=== PATIENT | female | born 1940 | race Caucasian/White ===

== ENCOUNTER 2018-08-14 14:10 | Emergency (ER) | payer MEDICARE, SELFPAY ==
[2018-08-14 14:15] VITALS: PULSE 101; RESP 22; O2SAT 97
--- NOTE | 2018-08-14 14:41 | DI.RAD.S_ITS ---
PROCEDURE: XR CHEST 1V INDICATIONS: feels foggy, hx cva TECHNIQUE: One view of the chest was acquired. COMPARISON: [facility], , CHEST 2 VIEW, 11/06/2012, 16:41. FINDINGS: Surgical changes and devices: None. Lungs and pleura: Lungs are clear. No pleural effusions or pneumothorax. Mediastinum: Mediastinal contours appear normal. Heart size is normal. There may be mitral valve calcifications. There appears to be aortic atherosclerosis. Bones and chest wall: No suspicious bony lesions. Overlying soft tissues appear unremarkable. IMPRESSION: Stable chest. No acute cardiopulmonary process is evident. Dictated by: Justice Talley M.D. on 08/14/2018 at 14:50 Approved by: Justice Talley M.D. on 08/14/2018 at 14:50
--- NOTE | 2018-08-14 14:43 | DI.CT.S_ITS ---
PROCEDURE: CT HEAD/BRAIN WO CON INDICATIONS: adali jc, hx cva TECHNIQUE: Noncontrast 4.5 mm thick angled axial sections acquired from the foramen magnum to the vertex, with coronal and sagittal reformats. For radiation dose reduction, the following was used: automated exposure control, adjustment of mA and/or kV according to patient size. COMPARISON: MR, BRAIN W&W/O CONTRAST, 03/25/2008, 20:34. [facility], MR, STROKE PROTOCOL, 08/30/2012, 15:25. FINDINGS: Image quality: Excellent. CSF spaces: Basal cisterns are patent. No extra-axial fluid collections. The ventricles are symmetric in size and shape. Note is made of cavum septum pellucidum. 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 Brain: There is a moderate to large sized old infarct in the right frontal lobe. No intracranial bleeds or masses. There is mild cerebral volume loss for age, with resultant ventricular and sulcal prominence. There are mild periventricular and deep white matter chronic small vessel ischemic changes. There is intracranial internal carotid artery atherosclerosis. Skull and face: Calvarium and visualized facial bones appear intact, without suspicious lesions. Sinuses: Visualized sinuses and mastoids are clear. IMPRESSION: 1. No acute intracranial abnormalities. 2. 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 3. Mild cerebral volume loss and chronic microvascular ischemic changes. Dictated by: Jorge Perdue M.D. on 08/14/2018 at 15:14 Approved by: Jorge Perdue M.D. on 08/14/2018 at 15:22
[2018-08-14 15:13] LABS: Add Manual Diff / Slide Review NO; Basophils Absolute Auto 100 /uL (0-100); Basophils Percent Auto 1.7 % (0-2); Eosinophils Absolute Auto 100 /uL (0-450); Eosinophils Percent Auto 1.6 % (2-4); Hematocrit 42.2 % (36-46); Hemoglobin 14.1 g/dL (12.0-16.0); Lymphocytes Absolute Auto 1400 /uL (1100-4500); Lymphocytes Percent Auto 23.7 % (25-40); Mean Corpuscular HGB Conc 33.5 % (30-36); Mean Corpuscular Hemoglobin 32.4 PG (26-34); Mean Corpuscular Volume 96.9 fL (80-100); Monocytes Absolute Auto 400 /uL (0-900); Monocytes Percent Auto 6.6 % (3-14); Neutrophils Absolute Auto 3900 /uL (1500-7000); Neutrophils Percent Auto 66.4 % (50-75); Platelet Count 273 X10^3/uL (150-400); Red Blood Cell Count 4.36 X10^6/uL (4.0-5.2); Red Cell Distribution Width 12.9 % (11.6-14.8); White Blood Cell Count 5.8 X10^3/uL (4.5-11.0)
[2018-08-14 15:14] LABS: INR 2.8 (0.9-1.3); Prothrombin Time 33.5 SECONDS (10.1-12.7)
[2018-08-14 15:16] LABS: PTT Partial Thromboplastin Tim 40 SECONDS (26.4-36.2)
[2018-08-14 15:23] LABS: BUN Creatinine Ratio 23.3 (6-22); Blood Urea Nitrogen 14 mg/dL (7-17); Calcium 9.3 mg/dL (8.4-10.2); Carbon Dioxide 26 mmol/L (22-32); Chloride 103 mmol/L (98-107); Estimated Glomerular Filt Rate > 60.0 mL/min (>60); Glucose 169 mg/dL (80-110); HEMOLYSIS < 15 (0-50); Potassium 3.7 mmol/L (3.4-5.1); Sodium 139 mmol/L (137-145)
[2018-08-14 15:35] LABS: Troponin I < 0.012 ng/mL (0.01-0.034)
[2018-08-14 15:58] VITALS: BP 160/65; PULSE 85; RESP 16; O2SAT 97
[2018-08-14] MEDS: SODIUM CHLORIDE 0.9% 1,000 ML 150 ML IV (16:27)
--- NOTE | 2018-08-14 17:27 | ED.NEUROSD ---
HPI - Neuro Symptoms/Deficit General Chief Complaint: Neuro Symptoms/Deficit Stated Complaint: FEELS STRANGE HIGH BLOOD PRESSURE Time Seen by Provider: 08/14/18 14:41 Source: patient Mode of arrival: ambulatory Limitations: no limitations History of Present Illness HPI Narrative: This is a 78-year-old female comes to the emergency department with complaint of feeling foggy patient states that she has been very stressed. She states her and her are from her [place] for the last 6 months they have been in and out of hospitals with her and they have not been living in their own home. They do not have any children, close family or friends so they are both entirely dependent on each other. He has been sick and [facility] Patient today was getting out of the car she just did not feel right she felt sort of foggy. She states that her thinking felt sort of slow or not clear. She arrived at the care facility ran into 1 of her friends. They said she did look she had not eaten any breakfast this was about noon. They fed her a grilled cheese, donut and some water she felt a little bit better and then they walked her over here. The patient had not had any headache, no chest pain, no shortness of breath, no difficulty with speech, weakness or vision. She had no issues with ambulation. She has not had any numbness or tingling. No nausea no vomiting no other issues with bowel movements. No new frequency urgency or dysuria. No new swelling in her lower extremities. she does have a remote history of stroke, she has history of atrial fibrillation which she states she is often in. She states that she has normal cholesterol. She has been diagnosed with CHF in the past. She does take warfarin daily. She has a history of breast cancer with multiple surgeries and multiple types of breast cancer. She does not smoke tobacco or use any alcohol. Related Data Home Medications Medication Instructions Recorded Confirmed CHOLECALCIFEROL (VITAMIN D3) 50,000 iu PO Q WEEK #0 08/06/10 (Vitamin D3) FOLIC ACID (Folate) 0.4 mg PO QDAY #0 08/06/10 VITAMIN C - 500 mg PO Q DAY #0 08/06/10 (VITAMIN C) [CO-Q10] 100 mg PO Q DAY #0 08/06/10 [GARLIC] 300 mg PO BID #0 08/06/10 CYANOCOBALAMIN (#VITAMIN B12) 500 mcg PO QDAY #0 07/23/11 [MACULAR PROTECT COMP] BID #0 07/23/11 aspirin 325 mg PO QDAY #0 07/23/11 metoprolol tartrate 25 mg PO PRN #0 07/23/11 Magnesium Gluconate (MAGTRATE) 400 mg PO QDAY #0 04/30/12 clindamycin HCl [Cleocin HCl] 300 mg PO #0 04/30/12 Allergies Allergy/AdvReac Type Severity Reaction Status Date / Time MILK Allergy Mild RHINITIS; Uncoded 08/23/17 11:48 EAR INFECTION, Cyclophosphamide Allergy Unknown Uncoded 08/23/17 11:48 DILTIAZEM Allergy Unknown SWELLING, Uncoded 08/23/17 11:48 CHILLS, ITCHING, STATES IV OK ERYTHROMYCIN Allergy Unknown RASH Uncoded 08/23/17 11:48 From ADRIAMYCIN Allergy Unknown NEUTROPENIC Uncoded 08/23/17 11:48 FEVER From FLUORIDE Allergy Unknown RASH Uncoded 08/23/17 11:48 From HERCEPTIN Allergy Unknown FLU LIKE Uncoded 08/23/17 11:48 SYMPTOMS From RESTORIL Allergy Unknown EXTREME Uncoded 08/23/17 11:48 DIZZINESS Paclitaxel Allergy Unknown Uncoded 08/23/17 11:48 PENICILLIN Allergy Unknown RASH Uncoded 08/23/17 11:48 PREDNISONE Allergy Unknown HYPERTENSION, Uncoded 08/23/17 11:48 SWELLING, WEIGHT GAIN SULFA Allergy Unknown Uncoded 08/23/17 11:48 TAMOXIFEN Allergy Unknown BLEEDING, Uncoded 08/23/17 11:48 TIA? TAPE Allergy Unknown RASH Uncoded 08/23/17 11:48 BLISTERS TETRACYCLINE Allergy Unknown RASH Uncoded 08/23/17 11:48 VANCOMYCIN Allergy Unknown RED SKIN Uncoded 08/23/17 11:48 Review of Systems Review of Systems ROS Unobtainable: All systems reviewed & are unremarkable except as noted in HPI and below Constitutional Denies chills, Denies fever(s), Denies frequent falls, Denies headache(s), Denies lethargy and Denies weakness Eyes Denies loss of vision ENT Ears, Nose, Mouth, and Throat: Denies vertigo, Denies dizziness and Denies headache(s) Cardiovascular Denies chest pain, Denies diaphoresis, Denies syncope, Denies rapid heart rate, Denies pedal edema, Denies irregular heart rhythm, Denies lightheadedness, Denies palpitations, Denies dyspnea, Denies dyspnea on exertion and Denies orthopnea Respiratory Denies chest congestion, Denies cough, Denies excessive phlegm production, Denies pain with cough, Denies dyspnea, Denies dyspnea on exertion and Denies wheezing Gastrointestinal Gastrointestinal: Denies abdominal pain, Denies change in bowel habits, Denies diarrhea, Denies nausea and Denies vomiting Genitourinary Denies hematuria, Denies urinary frequency, Denies dysuria, Denies flank pain and Denies urinary urgency Musculoskeletal Denies abnormal gait, Denies numbness and Denies tingling Integumentary/Breasts Denies rash Neurologic Reports as per HPI, Denies abnormal speech, Denies abnormal gait, Denies confusion, Denies vertigo, Denies dizziness, Denies syncope, Denies frequent falls, Denies headache(s), Denies focal weakness, Denies loss of vision, Denies memory loss, Denies numbness, Denies sensory deficit, Denies tingling, Denies paresthesias, Denies weakness and Reports other ([place] foggy) Psychiatric Denies confusion and Denies memory loss Endocrine Denies palpitations Allergic/Immunologic Denies wheezing PFSH Medical History (Updated 08/14/18 @ 17:59 by Valeria Hernandez DO) CHF (congestive heart failure) (Chronic) CVA (cerebral vascular accident) (Chronic) Chronic a-fib (Chronic) Breast cancer (Resolved) Social History Smoking Status: Former smoker Social History (Updated 08/14/18 @ 18:00 by Valeria Hernandez DO) marital status: details: From [place], living [facility] Smoking Status: Former smoker substance use type: does not use Exam Narrative Exam Narrative: GEN: well nourished, well appearing female, alert and oriented x 3, patient appears to be in no acute distress. HEENT: Atraumatic, pupils are equal round reactive to light, extraocular movements are intact, nares are clear, TMs are clear with no fluid, there is no conjunctival pallor. Throat is clear without any exudates, erythema, tonsillar enlargement or uvular deviation, no facial. HEART: Regular rate and rhythm without murmur, clicks, rubs. No carotid bruits, pulses are equal in upper and lower extremities LUNGS:Lungs clear to auscultation, no wheezes, rales, crackles, chest moves symmetrically ABD:bowel sounds normal, soft, non-tender, no guarding, rebound, rigidity, no masses noted, no hepatosplenomegaly :No CVA tenderness MSCL: Non-tender, no muscle atrophy, muscles strength 5/5 upper and lower extremities, full range of motion, normal gait NEURO:CN 2-12 intact, sensation normal, reflexes 2/4 upper and lower extremities. finger nose finger test normal, heel torres test normal Initial Vital Signs Initial Vital Signs: Vital Signs Pulse Rate 101 H 08/14/18 14:15 Respiratory Rate 22 08/14/18 14:15 Pulse Oximetry 97 08/14/18 14:15 Scores NIH Stroke Scale Level of Conciousness: Alert, keenly responsive Ask month/age: Answers both questions correctly. Open/close eyes, close hand: Performs both tasks correctly Best gaze horizontal: Normal Visual juan: No visual loss Facial palsy: Normal symetrical movement Left arm drift: No drift for full 10 sec Right arm drift: No drift for full 10 sec Left leg drift: No drift for full 10 sec Right leg drift: No drift for full 10 sec Limb ataxia: Absent Sensory on face/arms/legs: Normal, no sensory loss Best language: No aphasia, normal Dysarthria: Normal Extinction or inattention: No abnormality Total NIH Stroke scale score: 0 Course Orders Ordered: ED Orders 08/14/18 14:41 XR chest 1V Stat EKG-12 Lead Stat 08/14/18 14:43 CT head/brain wo con Stat 08/14/18 14:55 Basic Metabolic Panel Stat Complete Blood Count AUTO DIFF Stat Partial Thromboplastin Time Stat Prothrombin Time INR Stat Troponin I Stat Discontinued Medications Sodium Chloride (Normal Saline 0.9%) 1,000 mls @ 150 mls/hr IV CONT VENICE Last Infusion: 08/14/18 18:05 Dose: 0 mls/hr Admin: 08/14/18 16:27 Dose: 150 mls/hr Vital Signs - 8 hr 08/14/18 14:15 08/14/18 15:58 08/14/18 17:28 Temperature Pulse Rate 101 H 85 98 H Respiratory Rate 22 16 18 Blood Pressure [Right Arm] 160/65 H 129/90 Pulse Oximetry 97 97 97 08/14/18 18:05 Temperature 98.1 F Pulse Rate Respiratory Rate Blood Pressure [Right Arm] Pulse Oximetry MDM - Neuro Symptoms/Deficit Lab Data Attestation: I reviewed the patient's lab results. Result diagrams: 08/14/18 14:55 08/14/18 14:55 Lab Results 08/14/18 08/14/18 08/14/18 Range/Units 14:55 14:55 14:55 WBC 5.8 (4.5-11.0) X10^3/uL RBC 4.36 (4.0-5.2) X10^6/uL Hgb 14.1 (12.0-16.0) g/dL Hct 42.2 (36-46) % MCV 96.9 (80-100) fL MCH 32.4 (26-34) PG MCHC 33.5 (30-36) % RDW 12.9 (11.6-14.8) % Plt Count 273 (150-400) X10^3/uL Neut % (Auto) 66.4 (50-75) % Lymph % (Auto) 23.7 L (25-40) % [place] % (Auto) 6.6 (3-14) % Eos % (Auto) 1.6 L (2-4) % Baso % (Auto) 1.7 (0-2) % Neut # (Auto) 3900 (6474-6728) /uL Lymph # (Auto) 1400 (5808-3745) /uL [place] # (Auto) 400 (0-900) /uL Eos # (Auto) 100 (0-450) /uL Baso # (Auto) 100 (0-100) /uL PT 33.5 H (10.1-12.7) SECONDS INR 2.8 H (0.9-1.3) APTT 40 H (26.4-36.2) SECONDS Sodium 139 (137-145) mmol/L Potassium 3.7 (3.4-5.1) mmol/L Chloride 103 (98-107) mmol/L Carbon Dioxide 26 (22-32) mmol/L BUN 14 (7-17) mg/dL Creatinine 0.60 (0.52-1.04) mg/dL Estimated GFR > 60.0 (>60) mL/min BUN/Creatinine Ratio 23.3 H (6-22) Glucose 169 H (80-110) mg/dL Calcium 9.3 (8.4-10.2) mg/dL Troponin I < 0.012 (0.01-0.034) ng/mL Point of Care Testing Glucose POC 164 Urine Dip Bedside Urine Glucose Negative Bedside Urine Bilirubin - Negative Bedside Urine Ketone - Negative Urine Specific [place] 1.015 Bedside Urine Occult Blood - Negative Bedside Urine pH 6.5 Bedside Urine Protein - Negative Bedside Urine Urobilinogen - Negative Bedside Urine Nitrite - Negative Bedside Urine Leukocytes - Negative Esterase Imaging Data CT scan - head: Radiologist's impression: Haylie Watson Y 78 F [address] [address] [address] Scan Report Signed Patient: Haylie Watson YMR#: [id number] : 1940Acct:[id number] Age/Sex: 78 / FDate of Service: 08/14/18 Loc: ED Accession Number: [id number] Procedure: CT head/brain wo con Ordering Provider: Valeria Hernandez D.O. PROCEDURE: CT HEAD/BRAIN WO CON INDICATIONS: feels foggy, hx cva TECHNIQUE: Noncontrast 4.5 mm thick angled axial sections acquired from the foramen magnum to the vertex, with coronal and sagittal reformats. For radiation dose reduction, the following was used: automated exposure control, adjustment of mA and/or kV according to patient size. COMPARISON: MR, BRAIN W&W/O CONTRAST, 03/25/2008, 20:34. [facility], MR, STROKE PROTOCOL, 08/30/2012, 15:25. FINDINGS: Image quality: Excellent. CSF spaces: Basal cisterns are patent. No extra-axial fluid collections. The ventricles are symmetric in size and shape. Note is made of cavum septum pellucidum. 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 Brain: There is a moderate to large sized old infarct in the right frontal lobe. No intracranial bleeds or masses. There is mild cerebral volume loss for age, with resultant ventricular and sulcal prominence. There are mild periventricular and deep white matter chronic small vessel ischemic changes. There is intracranial internal carotid artery atherosclerosis. Skull and face: Calvarium and visualized facial bones appear intact, without suspicious lesions. Sinuses: Visualized sinuses and mastoids are clear. IMPRESSION: 1. No acute intracranial abnormalities. 2. 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 3. Mild cerebral volume loss and chronic microvascular ischemic changes. Dictated by: Jorge Perdue M.D. on 08/14/2018 at 15:14 Approved by: Jorge Perdue M.D. on 08/14/2018 at 15:22 Chest x-ray: Radiologist's impression: [address] [address] XRay Report Signed Patient: Haylie Watson YMR#: [id number] : 1940Acct:[id number] Age/Sex: 78 / FDate of Service: 08/14/18 Loc: ED Accession Number: [id number] Procedure: XR chest 1V Ordering Provider: Valeria Hernandez D.O. PROCEDURE: XR CHEST 1V INDICATIONS: feels foggy, hx cva TECHNIQUE: One view of the chest was acquired. COMPARISON: [facility], , CHEST 2 VIEW, 11/06/2012, 16:41. FINDINGS: Surgical changes and devices: None. Lungs and pleura: Lungs are clear. No pleural effusions or pneumothorax. Mediastinum: Mediastinal contours appear normal. Heart size is normal. There may be mitral valve calcifications. There appears to be aortic atherosclerosis. Bones and chest wall: No suspicious bony lesions. Overlying soft tissues appear unremarkable. IMPRESSION: Stable chest. No acute cardiopulmonary process is evident. Dictated by: Justice Talley M.D. on 08/14/2018 at 14:50 Approved by: Justice Talley M.D. on 08/14/2018 at 14:50 ECG Data Attestation: I personally reviewed and interpreted this ECG as follows: Interpretation: AFib rate of 93 QRS of [address] change. MDM Narrative Medical decision making narrative: Patient describes feeling sort of fungi or maybe a beer thinking but no actual neurologic changes, no other concerning changes. Her urinalysis is. Patient lab work shows an elevated INR which is consistent with being on Coumadin and is therapeutic range. Head CT shows an old CVA which she states she is aware of. Patient's chest x-ray does not show any acute changes. Lab work otherwise does not show any major changes. Discussed patient she can return any time for any new or worsening symptoms. She has been quite stressed this is likely contributing she had not had anything to eat or drink earlier. She felt better after she ate. Patient feels foggy but not really altered in her mental status otherwise. Discussed with patient's signs symptoms to watch for. Reasons to return emergently. Patient feels comfortable with this plan. She is having some stress personally and financially based on her 's a recurrent hospitalizations and time in the nursing facility. 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 Discharge Plan Departure Patient Disposition: Home Clinical Impression: Person with feared complaint in whom no diagnosis is made Discharge Date/Time: 08/14/18 18:05 Interventions: ED Discharge Assessment Last Done: 08/14/18 18:05 Instructions: DI for Altered Mental Status Activity Restrictions/Additional Instructions: Follow-up with her primary care physician in the next week for recheck. Continue her home medications as prescribed. You may continue your regular activities. Return to the emergency department for altered mental status, new confusion, new weakness, numbness, difficulty with speech, facial droop, inability to walk or move her upper or lower extremities, sudden severe headaches, no chest pain, shortness of breath or persistent vomiting or abdominal pain. Prescriptions: No Action CHOLECALCIFEROL (VITAMIN D3) (Vitamin D3) 50,000 iu PO Q WEEK Qty: 0 RF: 0 FOLIC ACID (Folate) 0.4 mg PO QDAY Qty: 0 RF: 0 VITAMIN C - (VITAMIN C) 500 mg PO Q DAY Qty: 0 RF: 0 [CO-Q10] 100 mg PO Q DAY Qty: 0 RF: 0 [GARLIC] 300 mg PO BID Qty: 0 RF: 0 aspirin 325 MG tablet,delayed release (DR/EC) 325 mg PO QDAY Qty: 0 RF: 0 [MACULAR PROTECT COMP] BID Qty: 0 RF: 0 CYANOCOBALAMIN (#VITAMIN B12) 500 mcg PO QDAY Qty: 0 RF: 0 metoprolol tartrate 25 MG tablet 25 mg PO PRN Qty: 0 RF: 0 Magnesium Gluconate (MAGTRATE) 400 mg PO QDAY Qty: 0 RF: 0 clindamycin HCl [Cleocin HCl] 300 MG capsule 300 mg PO Qty: 0 RF: 0 Referrals: David Farrell MD [Primary Care Provider] -
[2018-08-14 17:28] VITALS: BP 129/90; PULSE 98; RESP 18; O2SAT 97
--- NOTE | 2018-08-14 17:54 | ED_ITS ---
HPI - Neuro Symptoms/Deficit General Chief Complaint: Neuro Symptoms/Deficit Stated Complaint: FEELS STRANGE HIGH BLOOD PRESSURE Time Seen by Provider: 08/14/18 14:41 Source: patient Mode of arrival: ambulatory Limitations: no limitations History of Present Illness HPI Narrative: This is a 78-year-old female comes to the emergency department with complaint of feeling foggy patient states that she has been very stressed. She states her and her are from her [place] for the last 6 months they have been in and out of hospitals with her and they have not been living in their own home. They do not have any children, close family or friends so they are both entirely dependent on each other. He has been sick and is currently staying at [facility]. Patient today was getting out of the car she just did not feel right she felt sort of foggy. She states that her thinking felt sort of slow or not clear. She arrived at the care facility ran into 1 of her friends. They said she did look she had not eaten any breakfast this was about noon. They fed her a grilled cheese, donut and some water she felt a little bit better and then they walked her over here. The patient had not had any headache, no chest pain, no shortness of breath, no difficulty with speech, weakness or vision. She had no issues with ambulation. She has not had any numbness or tingling. No nausea no vomiting no other issues with bowel movements. No new frequency urgency or dysuria. No new swelling in her lower extremities. she does have a remote history of stroke, she has histor y of atrial fibrillation which she states she is often in. She states that she has normal cholesterol. She has been diagnosed with CHF in the past. She does take warfarin daily. She has a history of breast cancer with multiple surgeries and multiple types of breast cancer. She does not smoke tobacco or use any alcohol. Related Data Home Medications Medication Instructions Recorded Confirmed CHOLECALCIFEROL (VITAMIN D3) 50,000 iu PO Q WEEK #0 08/06/10 (Vitamin D3) FOLIC ACID (Folate) 0.4 mg PO QDAY #0 08/06/10 VITAMIN C - 500 mg PO Q DAY #0 08/06/10 (VITAMIN C) [CO-Q10] 100 mg PO Q DAY #0 08/06/10 [GARLIC] 300 mg PO BID #0 08/06/10 CYANOCOBALAMIN (#VITAMIN B12) 500 mcg PO QDAY #0 07/23/11 [MACULAR PROTECT COMP] BID #0 07/23/11 aspirin 325 mg PO QDAY #0 07/23/11 metoprolol tartrate 25 mg PO PRN #0 07/23/11 Magnesium Gluconate (MAGTRATE) 400 mg PO QDAY #0 04/30/12 clindamycin HCl [Cleocin HCl] 300 mg PO #0 04/30/12 Allergies Allergy/AdvReac Type Severity Reaction Status Date / Time MILK Allergy Mild RHINITIS; Uncoded 08/23/17 11:48 EAR INFECTION, Cyclophosphamide Allergy Unknown Uncoded 08/23/17 11:48 DILTIAZEM Allergy Unknown SWELLING, Uncoded 08/23/17 11:48 CHILLS, ITCHING, STATES IV OK ERYTHROMYCIN Allergy Unknown RASH Uncoded 08/23/17 11:48 From ADRIAMYCIN Allergy Unknown NEUTROPENIC Uncoded 08/23/17 11:48 FEVER From FLUORIDE Allergy Unknown RASH Uncoded 08/23/17 11:48 From HERCEPTIN Allergy Unknown FLU LIKE Uncoded 08/23/17 11:48 SYMPTOMS From RESTORIL Allergy Unknown EXTREME Uncoded 08/23/17 11:48 DIZZINESS Paclitaxel Allergy Unknown Uncoded 08/23/17 11:48 PENICILLIN Allergy Unknown RASH Uncoded 08/23/17 11:48 PREDNISONE Allergy Unknown HYPERTENSION, Uncoded 08/23/17 11:48 SWELLING, WEIGHT GAIN SULFA Allergy Unknown Uncoded 08/23/17 11:48 TAMOXIFEN Allergy Unknown BLEEDING, Uncoded 08/23/17 11:48 TIA? TAPE Allergy Unknown RASH Uncoded 08/23/17 11:48 BLISTERS TETRACYCLINE Allergy Unknown RASH Uncoded 08/23/17 11:48 VANCOMYCIN Allergy Unknown RED SKIN Uncoded 08/23/17 11:48 Review of Systems Review of Systems ROS Unobtainable: All systems reviewed & are unremarkable except as noted in HPI and below Constitutional Denies chills, Denies fever(s), Denies frequent falls, Denies headache(s), Denies lethargy and Denies weakness Eyes Denies loss of vision ENT Ears, Nose, Mouth, and Throat: Denies vertigo, Denies dizziness and Denies headache(s) Cardiovascular Denies chest pain, Denies diaphoresis, Denies syncope, Denies rapid heart rate, Denies pedal edema, Denies irregular heart rhythm, Denies lightheadedness, Denies palpitations, Denies dyspnea, Denies dyspnea on exertion and Denies orthopnea Respiratory Denies chest congestion, Denies cough, Denies excessive phlegm production, Denies pain with cough, Denies dyspnea, Denies dyspnea on exertion and Denies wheezing Gastrointestinal Gastrointestinal: Denies abdominal pain, Denies change in bowel habits, Denies diarrhea, Denies nausea and Denies vomiting Genitourinary Denies hematuria, Denies urinary frequency, Denies dysuria, Denies flank pain and Denies urinary urgency Musculoskeletal Denies abnormal gait, Denies numbness and Denies tingling Integumentary/Breasts Denies rash Neurologic Reports as per HPI, Denies abnormal speech, Denies abnormal gait, Denies confusion, Denies vertigo, Denies dizziness, Denies syncope, Denies frequent falls, Denies headache(s), Denies focal weakness, Denies loss of vision, Denies memory loss, Denies numbness, Denies sensory deficit, Denies tingling, Denies paresthesias, Denies weakness and Reports other ([place] foggy) Psychiatric Denies confusion and Denies memory loss Endocrine Denies palpitations Allergic/Immunologic Denies wheezing PFS Medical History (Updated 08/14/18 @ 17:59 by Valeria Hernandez DO) CHF (congestive heart failure) (Chronic) CVA (cerebral vascular accident) (Chronic) Chronic a-fib (Chronic) Breast cancer (Resolved) Social History Smoking Status: Former smoker Social History (Updated 08/14/18 @ 18:00 by Valeria Hernandez DO) marital status: details: From [place], living in [facility] Smoking Status: Former smoker substance use type: does not use Exam Narrative Exam Narrative: GEN: well nourished, well appearing female, alert and oriented x 3, patient appears to be in no acute distress. HEENT: Atraumatic, pupils are equal round reactive to light, extraocular movements are intact, nares are clear, TMs are clear with no fluid, there is no conjunctival pallor. Throat is clear without any exudates, erythema, tonsillar enlargement or uvular deviation, no facial. HEART: Regular rate and rhythm without murmur, clicks, rubs. No carotid bruits, pulses are equal in upper and lower extremities LUNGS:Lungs clear to auscultation, no wheezes, rales, crackles, chest moves symmetrically ABD:bowel sounds normal, soft, non-tender, no guarding, rebound, rigidity, no masses noted, no hepatosplenomegaly :No CVA tenderness MSCL: Non-tender, no muscle atrophy, muscles strength 5/5 upper and lower extremities, full range of motion, normal gait NEURO:CN 2-12 intact, sensation normal, reflexes 2/4 upper and lower extremities. finger nose finger test normal, heel torres test normal Initial Vital Signs Initial Vital Signs: Vital Signs Pulse Rate 101 H 08/14/18 14:15 Respiratory Rate 22 08/14/18 14:15 Pulse Oximetry 97 08/14/18 14:15 Scores NIH Stroke Scale Level of Conciousness: Alert, keenly responsive Ask month/age: Answers both questions correctly. Open/close eyes, close hand: Performs both tasks correctly Best gaze horizontal: Normal Visual juan: No visual loss Facial palsy: Normal symetrical movement Left arm drift: No drift for full 10 sec Right arm drift: No drift for full 10 sec Left leg drift: No drift for full 10 sec Right leg drift: No drift for full 10 sec Limb ataxia: Absent Sensory on face/arms/legs: Normal, no sensory loss Best language: No aphasia, normal Dysarthria: Normal Extinction or inattention: No abnormality Total NIH Stroke scale score: 0 Course Orders Ordered: ED Orders 08/14/18 14:41 XR chest 1V Stat EKG-12 Lead Stat 08/14/18 14:43 CT head/brain wo con Stat 08/14/18 14:55 Basic Metabolic Panel Stat Complete Blood Count AUTO DIFF Stat Partial Thromboplastin Time Stat Prothrombin Time INR Stat Troponin I Stat Discontinued Medications Sodium Chloride (Normal Saline 0.9%) 1,000 mls @ 150 mls/hr IV CONT VENICE Last Infusion: 08/14/18 18:05 Dose: 0 mls/hr Admin: 08/14/18 16:27 Dose: 150 mls/hr Vital Signs - 8 hr 08/14/18 14:15 08/14/18 15:58 08/14/18 17:28 Temperature Pulse Rate 101 H 85 98 H Respiratory Rate 22 16 18 Blood Pressure [Right Arm] 160/65 H 129/90 Pulse Oximetry 97 97 97 08/14/18 18:05 Temperature 98.1 F Pulse Rate Respiratory Rate Blood Pressure [Right Arm] Pulse Oximetry MDM - Neuro Symptoms/Deficit Lab Data Attestation: I reviewed the patient's lab results. Result diagrams: 08/14/18 14:55 08/14/18 14:55 Lab Results 08/14/18 08/14/18 08/14/18 Range/Units 14:55 14:55 14:55 WBC 5.8 (4.5-11.0) X10^3/uL RBC 4.36 (4.0-5.2) X10^6/uL Hgb 14.1 (12.0-16.0) g/dL Hct 42.2 (36-46) % MCV 96.9 (80-100) fL MCH 32.4 (26-34) PG MCHC 33.5 (30-36) % RDW 12.9 (11.6-14.8) % Plt Count 273 (150-400) X10^3/uL Neut % (Auto) 66.4 (50-75) % Lymph % (Auto) 23.7 L (25-40) % [place] % (Auto) 6.6 (3-14) % Eos % (Auto) 1.6 L (2-4) % Baso % (Auto) 1.7 (0-2) % Neut # (Auto) 3900 (1054-5216) /uL Lymph # (Auto) 1400 (0489-8350) /uL Fergus # (Auto) 400 (0-900) /uL Eos # (Auto) 100 (0-450) /uL Baso # (Auto) 100 (0-100) /uL PT 33.5 H (10.1-12.7) SECONDS INR 2.8 H (0.9-1.3) APTT 40 H (26.4-36.2) SECONDS Sodium 139 (137-145) mmol/L Potassium 3.7 (3.4-5.1) mmol/L Chloride 103 (98-107) mmol/L Carbon Dioxide 26 (22-32) mmol/L BUN 14 (7-17) mg/dL Creatinine 0.60 (0.52-1.04) mg/dL Estimated GFR > 60.0 (>60) mL/min BUN/Creatinine Ratio 23.3 H (6-22) Glucose 169 H (80-110) mg/dL Calcium 9.3 (8.4-10.2) mg/dL Troponin I < 0.012 (0.01-0.034) ng/mL Point of Care Testing Glucose POC 164 Urine Dip Bedside Urine Glucose Negative Bedside Urine Bilirubin - Negative Bedside Urine Ketone - Negative Urine Specific [place] 1.015 Bedside Urine Occult Blood - Negative Bedside Urine pH 6.5 Bedside Urine Protein - Negative Bedside Urine Urobilinogen - Negative Bedside Urine Nitrite - Negative Bedside Urine Leukocytes - Negative Esterase Imaging Data CT scan - head: Radiologist's impression: Haylie Watson Y 78 F [address] [address] [address] Scan Report Signed Patient: Haylie Watson YMR#: [id number] : 1940Acct:[id number] Age/Sex: 78 / FDate of Service: 08/14/18 Loc: ED Accession Number: [id number] Procedure: CT head/brain wo con Ordering Provider: Valeria Hernandez D.O. PROCEDURE: CT HEAD/BRAIN WO CON INDICATIONS: feels foggy, hx cva TECHNIQUE: Noncontrast 4.5 mm thick angled axial sections acquired from the foramen magnum to the vertex, with coronal and sagittal reformats. For radiation dose reduction, the following was used: automated exposure control, adjustment of mA and/or kV according to patient size. COMPARISON: MR, BRAIN W&W/O CONTRAST, 03/25/2008, 20:34. [facility], MR, STROKE PROTOCOL, 08/30/2012, 15:25. FINDINGS: Image quality: Excellent. CSF spaces: Basal cisterns are patent. No extra-axial fluid collections. The ventricles are symmetric in size and shape. Note is made of cavum septum pellucidum. 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 Brain: There is a moderate to large sized old infarct in the right frontal lobe. No intracranial bleeds or masses. There is mild cerebral volume loss for age, with resultant ventricular and sulcal prominence. There are mild periventricular and deep white matter chronic small vessel ischemic changes. There is intracranial internal carotid artery atherosclerosis. Skull and face: Calvarium and visualized facial bones appear intact, without suspicious lesions. Sinuses: Visualized sinuses and mastoids are clear. IMPRESSION: 1. No acute intracranial abnormalities. 2. 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 3. Mild cerebral volume loss and chronic microvascular ischemic changes. Dictated by: Jorge Perdue M.D. on 08/14/2018 at 15:14 Approved by: Jorge Perdue M.D. on 08/14/2018 at 15:22 Chest x-ray: Radiologist's impression: [address] [address] XRay Report Signed Patient: Haylie Watson YMR#: [id number] : 1940Acct:[id number] Age/Sex: 78 / FDate of Service: 08/14/18 Loc: ED Accession Number: [id number] Procedure: XR chest 1V Ordering Provider: Valeria Hernandez D.O. PROCEDURE: XR CHEST 1V INDICATIONS: feels foggy, hx cva TECHNIQUE: One view of the chest was acquired. COMPARISON: [facility], , CHEST 2 VIEW, 11/06/2012, 16:41. FINDINGS: Surgical changes and devices: None. Lungs and pleura: Lungs are clear. No pleural effusions or pneumothorax. Mediastinum: Mediastinal contours appear normal. Heart size is normal. There may be mitral valve calcifications. There appears to be aortic atherosclerosis. Bones and chest wall: No suspicious bony lesions. Overlying soft tissues appear unremarkable. IMPRESSION: Stable chest. No acute cardiopulmonary process is evident. Dictated by: Justice Talley M.D. on 08/14/2018 at 14:50 Approved by: Justice Talley M.D. on 08/14/2018 at 14:50 ECG Data Attestation: I personally reviewed and interpreted this ECG as follows: Interpretation: AFib rate of 93 QRS of [address] change. MDM Narrative Medical decision making narrative: Patient describes feeling sort of fungi or maybe a beer thinking but no actual neurologic changes, no other concerning changes. Her urinalysis is. Patient lab work shows an elevated INR which is consistent with being on Coumadin and is therapeutic range. Head CT shows an old CVA which she states she is aware of. Patient's chest x-ray does not show any acute changes. Lab work otherwise does not show any major changes. Discu ssed patient she can return any time for any new or worsening symptoms. She has been quite stressed this is likely contributing she had not had anything to eat or drink earlier. She felt better after she ate. Patient feels foggy but not really altered in her mental status otherwise. Discussed with patient's signs symptoms to watch for. Reasons to return emergently. Patient feels comfortable with this plan. She is having some stress personally and financially based on her 's a recurrent hospitalizations and time in the nursing facility. She did not wish to talk to social services analyst she states she has many social workers that she is interacting with on a regular basis. Discharge Plan Departure Patient Disposition: Home Clinical Impression: Person with feared complaint in whom no diagnosis is made Discharge Date/Time: 08/14/18 18:05 Interventions: ED Discharge Assessment Last Done: 08/14/18 18:05 Instructions: DI for Altered Mental Status Activity Restrictions/Additional Instructions: Follow-up with her primary care physician in the next week for recheck. Continue her home medications as prescribed. You may continue your regular activities. Return to the emergency department for altered mental status, new confusion, new weakness, numbness, difficulty with speech, facial droop, inability to walk or move her upper or lower extremities, sudden severe headaches, no chest pain, shortness of breath or persistent vomiting or abdominal pain. Prescriptions: No Action CHOLECALCIFEROL (VITAMIN D3) (Vitamin D3) 50,000 iu PO Q WEEK Qty: 0 RF: 0 FOLIC ACID (Folate) 0.4 mg PO QDAY Qty: 0 RF: 0 VITAMIN C - (VITAMIN C) 500 mg PO Q DAY Qty: 0 RF: 0 [CO-Q10] 100 mg PO Q DAY Qty: 0 RF: 0 [GARLIC] 300 mg PO BID Qty: 0 RF: 0 aspirin 325 MG tablet,delayed release (DR/EC) 325 mg PO QDAY Qty: 0 RF: 0 [MACULAR PROTECT COMP] BID Qty: 0 RF: 0 CYANOCOBALAMIN (#VITAMIN B12) 500 mcg PO QDAY Qty: 0 RF: 0 metoprolol tartrate 25 MG tablet 25 mg PO PRN Qty: 0 RF: 0 Magnesium Gluconate (MAGTRATE) 400 mg PO QDAY Qty: 0 RF: 0 clindamycin HCl [Cleocin HCl] 300 MG capsule 300 mg PO Qty: 0 RF: 0 Referrals: David Farrell MD [Primary Care Provider] -
[2018-08-14 18:05] VITALS: TEMP 36.7
== END 2018-08-14 18:05 | disposition home or self-care (01) ==
PROVIDERS: Emergency Provider Emergency Medicine; Family Provider Internal Medicine; PCP Internal Medicine
DX: R41.0 Disorientation, unspecified (principal); R03.0 Elevated blood-pressure reading, without diagnosis of hypertension; Z71.1 Person with feared health complaint in whom no diagnosis is made; Z86.73 Personal history of transient ischemic attack (TIA), and cerebral infarction without residual deficits
CPT/HCPCS: 70450; 71045; 80048; 81003; 82962; 84484; 85025; 85610; 85730; 93005; 96360; 96361; 99284; 99285; 99291

== ENCOUNTER → 2020-02-27 19:29 | Outpatient (ROUT) | payer MEDICARE, SELFPAY ==
[2020-02-27 19:50] LABS: Add Manual Diff / Slide Review NO; Basophils Absolute Auto 100 /uL (0-100); Eosinophils Absolute Auto 200 /uL (0-450); Eosinophils Percent Auto 2.2 % (2-4); Hemoglobin 14.4 g/dL (12.0-16.0); Lymphocytes Absolute Auto 2500 /uL (1100-4500); Lymphocytes Percent Auto 31.4 % (25-40); Mean Corpuscular HGB Conc 34.3 % (30-36); Mean Corpuscular Hemoglobin 32.5 PG (26-34); Monocytes Absolute Auto 900 /uL (0-900); Monocytes Percent Auto 10.9 % (3-14); Neutrophils Absolute Auto 4300 /uL (1500-7000); Neutrophils Percent Auto 54.5 % (50-75); Platelet Count 271 X10^3/uL (150-400); Red Blood Cell Count 4.42 X10^6/uL (4.0-5.2); Red Cell Distribution Width 13.5 % (11.6-14.8); White Blood Cell Count 7.8 X10^3/uL (4.5-11.0)
[2020-02-27 20:03] LABS: Alanine Aminotransferase 18 IU/L (<35); Albumin 4.1 g/dL (3.5-5.0); Albumin Globulin Ratio 1.2 (1.0-2.8); Alkaline Phosphatase 93 U/L (38-126); Aspartate Aminotransferase 30 IU/L (14-36); BUN Creatinine Ratio 32.2 (6-22); Bilirubin Total 0.4 mg/dL (0.2-1.3); Blood Urea Nitrogen 19 mg/dL (7-17); Calcium 9.9 mg/dL (8.4-10.2); Carbon Dioxide 31 mmol/L (22-32); Chloride 102 mmol/L (98-107); Cholesterol 169 mg/dL (140-199); Estimated Glomerular Filt Rate > 60.0 mL/min (>60); Globulin 3.4 g/dL (1.7-4.1); Glucose 81 mg/dL (80-110); HDL Cholesterol 40 mg/dL (40-60); HEMOLYSIS 16 (0-50); LDL Cholesterol Calculated 91 mg/dL (<100); Potassium 4.8 mmol/L (3.4-5.1); Sodium 139 mmol/L (137-145); Total Protein 7.5 g/dL (6.3-8.2); Triglycerides 192 mg/dL (35-150)
[2020-02-27 20:31] LABS: TSH w/ Reflex to FT4 2.04 uIU/mL (0.47-4.68)
== END ==
PROVIDERS: Family Provider Internal Medicine; PCP Internal Medicine; Visit Provider Internal Medicine
DX: I48.91 Unspecified atrial fibrillation (principal); E78.2 Mixed hyperlipidemia
CPT/HCPCS: 80053; 80061; 84443; 85025

== ENCOUNTER → 2020-11-11 15:47 | Outpatient (CLI) | payer MEDICARE, SELFPAY ==
--- NOTE | 2020-11-11 15:55 | DI.ECHO.S_ITS ---
[facility]---------+ [facility] +---------+ : : [address] : : : : [id number] : : : : Phone: [phone] Echocardiogram Report + + :Name: BURKE CHI Study Date: 11/11/2020 Height: 63 in : :[facility] ReadingLocation: Weight: 150 lb : : Gender: Female BSA: 1.7 m2 : :: 1940 Age: 80 yrs BP: 111/69 mmHg: :Reason For Study: SYSTOLIC HEART FAILURE : :Ordering Physician: NERI, : :AYSE Performed By: Jocelyn Paige : :Referring: AYSE HE : + + Interpretation Summary Left ventricular systolic function remains normal with an estimated ejection fraction of 60 to 65% without any focal wall motion abnormality. Left ventricular size and wall thickness remain normal. Diastolic function cannot be accurately assessed because of atrial fibrillation and mitral annular calcification. There has been no significant change since the previous study. The right ventricle appears normal in size and systolic function and is likely unchanged from the previous study. Right ventricular systolic pressure is estimated at 27 mmHg with a CVP of 3 mmHg, and is unchanged from the previous exam. There is severe left atrial enlargement and mild right atrial enlargement, both measuring slightly larger compared to the previous study. There is significant mitral annular calcification extending onto the posterior leaflet but there is no significant mitral stenosis with a mean gradient of 3.5 mmHg. There is moderate mitral regurgitation that appears slightly more prominent compared to the previous exam. There is trivial tricuspid regurgitation that is less prominent compared to the previous study. There continues to be trivial aortic and pulmonic valve regurgitation. There is evidence of abdominal aortic luminal calcification, consistent with atherosclerosis but fairly normal dimensions. The patient was in atrial fibrillation at 45 to 80 bpm, slightly slower compared to the previous study. Procedure: A two-dimensional transthoracic echocardiogram with color flow and Doppler was performed. The study quality was technically adequate. Comparison is made with the echocardiogram of 08/12/2015. The patient was in atrial fibrillation with heart rates between 45-80 bpm during the exam. Left Ventricle: The left ventricle appears normal in size, wall thickness, and systolic function without any focal wall motion abnormalities. The estimated left ventricular end diastolic volume is 47 ml. The ejection fraction is estimated to be 60-65%. Diastolic function could not be accurately assessed due to atrial fibrillation. There has been no significant change since the previous study. Right Ventricle: The right ventricle is normal in size and function. This is unchanged compared to the previous study. Atria: The left atrium is severely dilated. Both atria have mildly increased in size since the prior echo exam. The right atrium is mildly dilated. There is no Doppler evidence for an interatrial shunt. Mitral Valve: There is moderate to severe mitral annular calcification. The mitral valve leaflets are mildly calcified. No significant mitral valve stenosis. The mitral valve mean gradient is 3.5 mmHg. There is moderate mitral regurgitation. This is slightly more prominent compared to the previous study. Aortic Valve: The aortic valve is trileaflet. The aortic valve opens well. The aortic valve is slightly calcified. There is no aortic valve stenosis. There is trace aortic regurgitation. Tricuspid Valve: The tricuspid valve is normal in structure and function. There is trace tricuspid regurgitation. The right ventricular systolic pressure is estimated to be at least 27 mmHg based on an estimated right atrial pressure of 3 mm Hg. This is slightly less prominent compared to the previous study. Pulmonic Valve: The pulmonic valve leaflets are thin and pliable; valve motion is normal. There is trace pulmonic regurgitation. Great Vessels: The aortic root is normal size. The dimensions of the ascending aorta are normal. There is mild luminal irregularity and echogenicity in the abdominal aorta, suggestive of aortic atherosclerotic disease. The IVC is of normal diameter and collapses greater than 50% with a sniff. This suggests a low right atrial pressure of 3 mm Hg. Pericardium/ Pleura There is no pericardial effusion. There is no pleural effusion. MMode/2D Measurements & Calculations LVIDd: 4.4 cm LVOT diam: 1.9 cm LVIDs: 2.8 cm Ao root diam: 2.7 cm FS: 36.8 % asc Aorta Diam: 3.2 cm IVSd: 0.77 cm Ao Arch Diam (Prox Trans): 2.3 cm LVPWd: 0.79 cm LV tavares. diameter/BSA (cm/m^2): 2.5 LV sys. diameter/BSA (cm/m^2): 1.6 LA A2 area: 26.7 cm2 RA long axis: 5.0 cm LA A4 area: 25.1 cm2 RA area: 19.8 cm2 LA length (vol): 6.0 cm RA vol: 65.9 ml LA vol: 94.6 ml RA : 38.5 ml/m2 LA vol index: 55.3 ml/m2 IVC diam: 1.6 cm RVD1 (basal): 3.4 cm TAPSE: 1.8 cm Doppler Measurements & Calculations Ao V2 max: 117.7 cm/sec LVOT Max Kevin: 75.6 cm/sec Ao V2 mean: 78.9 cm/sec LV V1 max P.3 mmHg Ao max P.5 mmHg LV V1 VTI: 17.0 cm Ao mean P.8 mmHg NANCY(I,D): 1.8 cm2 Ao V2 VTI: 25.8 cm NANCY(V,D): 1.8 cm2 sev ratio: 0.66 NANCY indexed to BSA (cm^2/m^2): 1.1 MV E max kevin: 145.2 cm/sec TR max kevin: 242.3 cm/sec MV A max kevin: 2.9 cm/sec TR max P.5 mmHg MV E/A: 49.6 PA V2 max: 106.5 cm/sec Med Peak E' Kevin: 7.4 cm/sec PA V2 mean: 67.3 cm/sec E/E' med: 19.5 PA mean P.1 mmHg Lat Peak E' Kevin: 6.7 cm/sec PA pr(Accel): 56.7 mmHg E/E' lat: 21.7 E/e' average: 20.6 MV dec time: 0.23 sec MVA(VTI): 1.5 cm2 MV V2 mean: 84.9 cm/sec SV(LVOT): 47.6 ml MV mean P.5 mmHg MV V2 VTI: 31.3 cm Reading Physician:12:30 PM
== END ==
PROVIDERS: Family Provider Internal Medicine; PCP Internal Medicine; Referring Provider Specialist; Visit Provider Specialist
DX: I34.0 Nonrheumatic mitral (valve) insufficiency (principal); I50.22 Chronic systolic (congestive) heart failure
CPT/HCPCS: 93306

== ENCOUNTER → 2020-11-24 12:02 | Outpatient (CLI) | payer MEDICARE, SELFPAY ==
[2020-11-24 13:17] LABS: Alanine Aminotransferase 15 IU/L (<35); Albumin 4.1 g/dL (3.5-5.0); Albumin Globulin Ratio 1.3 (1.0-2.8); Alkaline Phosphatase 88 U/L (38-126); Aspartate Aminotransferase 26 IU/L (14-36); BUN Creatinine Ratio 17.5 (6-22); Bilirubin Total 0.4 mg/dL (0.2-1.3); Blood Urea Nitrogen 10 mg/dL (7-17); Calcium 10.4 mg/dL (8.4-10.2); Carbon Dioxide 26 mmol/L (22-32); Chloride 103 mmol/L (98-107); Estimated Glomerular Filt Rate > 60.0 mL/min (>60); Globulin 3.2 g/dL (1.7-4.1); Glucose 100 mg/dL (80-110); HEMOLYSIS < 15 (0-50); Potassium 4.3 mmol/L (3.4-5.1); Sodium 138 mmol/L (137-145); Total Protein 7.3 g/dL (6.3-8.2)
[2020-11-24 13:18] LABS: Digoxin 0.6 ng/mL (0.8-2.0)
== END ==
PROVIDERS: Family Provider Internal Medicine; PCP Internal Medicine; Referring Provider Specialist; Visit Provider Specialist
DX: I48.19 Other persistent atrial fibrillation (principal); I10 Essential (primary) hypertension
CPT/HCPCS: 36415; 80053; 80162; 83735

== ENCOUNTER → 2021-06-23 08:57 | Outpatient (CLI) | payer MEDICARE, SELFPAY ==
[2021-06-25 09:01] LABS: Cholesterol, Total 167 mg/dL (100-199); HDL-Cholesterol 60 mg/dL (>39); HDL-Particle (Total) 31.1 umol/L (>=30.5); LDL Particle 1012 nmol/L (<1000); LDL Size 21.1 nm (>20.5); LDL-Cholsterol 90 mg/dL (0-99); LP-IR Score <25 (<=45); Small LDL- Particle 332 nmol/L (<=527); Triglycerides 91 mg/dL (0-149)
== END ==
PROVIDERS: Family Provider Internal Medicine; PCP Internal Medicine; Referring Provider Physician Assistant Medical; Visit Provider Physician Assistant Medical
DX: E78.2 Mixed hyperlipidemia (principal)
CPT/HCPCS: 36415; 80061; 83704

== ENCOUNTER 2022-12-11 07:44 | Inpatient (IN) | payer MEDICARE, SELFPAY ==
[2022-12-11] VITALS (51 sets, daily range): BP systolic 110–188; BP diastolic 59–119; PULSE 67–126; RESP 13–36; TEMP 36.5–37.1; O2SAT 91–97; BMI 23.3
--- NOTE | 2022-12-11 07:49 | ED.GENADULT ---
HPI - General Adult General Chief complaint: Fall Stated complaint: GLF no thinners Time Seen by Provider: 12/11/22 07:49 History of Present Illness HPI narrative: 82-year-old female nonsmoker with a reported history of atrial fibrillation and congestive heart failure presents by EMS for evaluation a ground level fall and generalized weakness. She states that she was getting out of bed at about 4:00 a.m. this morning and fell to the ground. She thinks maybe she has some pain in her right shoulder and left-sided ribs but denies any other injury. She states she did not strike her head and has no neck or back pain. She denies any change in medications or any dietary change. She states that she has been eating and drinking without difficulty but does state that she thinks her oral intake has been decreased. She denies runny nose or sore throat. She denies chest pain. She states that she is always short of breath and denies any new short of breath. She has had no nausea, vomiting or diarrhea. She denies dysuria, frequency or urgency. She states she slowly fell to the ground and was unable to get up for the past 2-3 hours. She states that she could not get up because she was weak and maybe because of pain but she does not necessarily know where the pain might be. Related Data Home Medications Medication Instructions Recorded Confirmed CHOLECALCIFEROL (VITAMIN D3) 50,000 iu PO Q WEEK ##0 08/06/10 (Vitamin D3) FOLIC ACID (Folate) 0.4 mg PO QDAY ##0 08/06/10 VITAMIN C - 500 mg PO Q DAY ##0 08/06/10 (VITAMIN C) [CO-Q10] 100 mg PO Q DAY ##0 08/06/10 [GARLIC] 300 mg PO BID ##0 08/06/10 CYANOCOBALAMIN (#VITAMIN B12) 500 mcg PO QDAY ##0 07/23/11 [MACULAR PROTECT COMP] BID ##0 07/23/11 aspirin 325 mg tablet,delayed 325 mg PO QDAY ##0 07/23/11 release metoprolol tartrate 25 mg tablet 25 mg PO PRN ##0 07/23/11 Magnesium Gluconate (MAGTRATE) 400 mg PO QDAY ##0 04/30/12 clindamycin HCl 300 mg capsule 300 mg PO ##0 04/30/12 (Cleocin HCl) Allergies Allergy/AdvReac Type Severity Reaction Status Date / Time milk Allergy Mild Rhinitis; Verified 12/11/22 07:54 ear infection adhesive tape Allergy Unknown Rash, Verified 12/11/22 07:59 blisters cyclophosphamide Allergy Unknown Verified 12/11/22 07:54 diltiazem Allergy Unknown SWELLING, Verified 12/11/22 07:54 CHILLS, ITCHING, STATES IV OK doxorubicin [From Adriamycin] Allergy Unknown Neutropenic Verified 12/11/22 07:54 fever erythromycin base Allergy Unknown Rash Verified 12/11/22 07:54 [From Erythrocin] fluoride Allergy Unknown Rash Verified 12/11/22 07:54 paclitaxel Allergy Unknown Verified 12/11/22 07:59 Penicillins Allergy Unknown Rash Verified 12/11/22 07:59 Sulfa (Sulfonamide Allergy Unknown Verified 12/11/22 07:59 Antibiotics) tamoxifen Allergy Unknown Bleeding, Verified 12/11/22 07:59 TIA? tetracycline Allergy Unknown Rash Verified 12/11/22 07:59 vancomycin Allergy Unknown Redness of Verified 12/11/22 07:59 Skin prednisone AdvReac Unknown HYPERTENSION, Verified 12/11/22 07:59 SWELLING, WEIGHT GAIN temazepam [From Restoril] AdvReac Unknown Dizziness Verified 12/11/22 07:59 trastuzumab [From Herceptin] AdvReac Unknown flu-like Verified 12/11/22 07:54 symptoms Review of Systems Review of Systems Narrative: GENERAL: See HPI HEENT: Denies sinus pain, ear pain, sore throat, difficulty swallowing, dizziness. RESPIRATORY: See HPI CARDIOVASCULAR: Denies chest pain, palpitations, orthopnea, edema, GASTROINTESTINAL: Denies nausea, vomiting, abdominal pain, diarrhea, constipation, melena. : See HPI MUSCULOSKELETAL: See HPI SKIN: Denies rash, skin lesions, or other NEUROLOGIC: Denies weakness, headache, numbness, change in speech, confusion, seizures, incoordination. PSYCHIATRIC: No concerning psychosocial issues. 12 point review of systems is negative except for those stated above Patient History Medical History Breast cancer CHF (congestive heart failure) Chronic a-fib CVA (cerebral vascular accident) Social History marital status: details: From [place], [facility] Smoking Status: Former smoker substance use type: does not use Smoking Status: Former smoker Exam Narrative Exam Narrative: GENERAL: [82] year old patient appears stated age. Frail and elderly, very hard of hearing. GCS 15 HEAD: Atraumatic. Normocephalic. No contusion or abrasion, no laceration, no evidence of depressed skull fracture EYES: Pupils equal round and reactive. No hyphema Extraocular motions intact. No scleral icterus. No injection or drainage. ENT: Dry mucous membranes Nose without bleeding, purulent drainage. Throat without erythema, tonsillar hypertrophy or exudate. Airway patent. NECK: Trachea midline. Non tender, no step-offs or crepitance CARDIOVASCULAR: Tachycardic and irregular rhythm without murmurs, gallops, or rubs. RESPIRATORY: Clear to auscultation. Breath sounds equal bilaterally. No wheezes, rales, or rhonchi. GASTROINTESTINAL: Abdomen soft, non-tender, nondistended. EXTREMITIES: 1+ pitting edema on bilateral lower extremities. Left hand with 3 cm superficial laceration in the webspace between 4th and 5th fingers, no bone or tendon involvement BACK: Nontender without deformity or crepitance. No flank tenderness. NEURO: AOx3. SKIN: Poor skin turgor No rash or erythema of visible areas Initial Vital Signs Initial Vital Signs: Vital Signs Temperature 97.8 F 12/11/22 08:03 Pulse Rate 126 H 12/11/22 08:03 Respiratory Rate 23 12/11/22 08:03 Blood Pressure 173/104 H 12/11/22 08:03 Pulse Oximetry 97 12/11/22 08:03 Oxygen Delivery Method Room Air 12/11/22 08:03 Procedures Laceration Repair Laceration 1: Site: hand Side (If applicable): left Size (cm): 3 Description: linear Depth: simple, single layer Local Anesthetic: lidocaine 2% Amount of anesthesia used (mL): 3 Pre-repair: wound explored, irrigated extensively and cleansed with chlorhexadine Skin layer closed with: nylon Skin layer suture size: 5-0 Number of sutures: 8 Course Orders Ordered: ED Orders 12/11/22 07:50 Chest [XR chest 1V] Stat EKG-12 Lead Stat 12/11/22 08:00 Complete Blood Count AUTO DIFF Stat Comprehensive Metabolic Panel Stat Magnesium Stat NT-proBNP (BNP-Adult 18+) Stat Troponin & CK Cardiac Panel Stat DILTIAZEM (Diltiazem 125 Mg/125 Ml-D5w) 125 mg in 125 mls @ 5 mls/hr IV TITRATE VENICE; Protocol Discontinued Medications Diltiazem HCl (Diltiazem 5 Mg/Ml Sdv) 10 mg IV NOW ONE Stop: 12/11/22 08:21 Sodium Chloride (Normal Saline 0.9%) 500 mls @ 1,000 mls/hr IV BOLUS ONE Stop: 12/11/22 08:19 Last Admin: 12/11/22 07:57 Dose: 1,000 mls/hr Vital Signs Vital signs: Vital Signs - 8 hr 12/11/22 08:03 Temperature 97.8 F Pulse Rate 126 H Respiratory Rate 23 Blood Pressure 173/104 H Pulse Oximetry 97 Oxygen Delivery Method Room Air Medical Decision Making Lab Data 12/11/22 08:00 12/11/22 08:00 Labs: Lab Results 12/11/22 12/11/22 Range/Units 08:00 08:00 WBC 10.2 (4.5-11.0) X10^3/uL RBC 4.23 (4.0-5.2) X10^6/uL Hgb 13.9 (12.0-16.0) g/dL Hct 41.7 (36-46) % MCV 98.7 (80-100) fL MCH 33.0 (26-34) PG MCHC 33.4 (30-36) % RDW 16.1 H (11.6-14.8) % Plt Count 218 (150-400) X10^3/uL Neut % (Auto) 73.7 (50-75) % Lymph % (Auto) 13.7 L (25-40) % [place] % (Auto) 8.4 (3-14) % Eos % (Auto) 1.4 L (2-4) % Baso % (Auto) 2.8 H (0-2) % Neut # (Auto) 7500 H (2182-0704) /uL Lymph # (Auto) 1400 (2615-2877) /uL [place] # (Auto) 900 (0-900) /uL Eos # (Auto) 100 (0-450) /uL Baso # (Auto) 300 H (0-100) /uL Sodium 134 L (137-145) mmol/L Potassium 4.2 (3.4-5.1) mmol/L Chloride 103 (98-107) mmol/L Carbon Dioxide 22 (22-32) mmol/L BUN 21 H (7-17) mg/dL Creatinine 0.64 (0.52-1.04) mg/dL Estimated GFR > 60 (>60) mL/min BUN/Creatinine Ratio 32.8 H (6-22) Glucose 123 H (80-110) mg/dL Calcium 8.7 (8.4-10.2) mg/dL Magnesium 2.0 (1.6-2.3) mg/dL Total Bilirubin 1.7 H (0.2-1.3) mg/dL AST 43 H (14-36) IU/L ALT 24 (<35) IU/L Alkaline Phosphatase 147 H (38-126) U/L Total Creatine Kinase 46 (30-135) U/L Total Protein 7.1 (6.3-8.2) g/dL Albumin 3.5 (3.5-5.0) g/dL Globulin 3.6 (1.7-4.1) g/dL Albumin/Globulin Ratio 1.0 (1.0-2.8) MDM Narrative Medical decision making narrative: CC: 82-year-old female with ground level fall and weakness Complicating co-morbidities: Age, prior stroke, breast cancer, atrial fibrillation Data collected from: Patient Medical records reviewed: Prior notes reviewed in our EMR Differential considered, but not limited to: Dehydration versus UTI versus pneumonia versus CHF versus cardiac disease versus rhabdomyolysis versus rib fracture versus shoulder injury versus other Exam documented above, pertinent findings include: Lab Test results independently reviewed as above. Pertinent findings: Independently reviewed EKG as above Imaging studies independently reviewed: CHF, cardiomegally, R pleural effusion Consultations: discussed with hospitalist, see details above Treatments: Lidocaine 2%, Cardizem 10mg IVP followed by drip at 5 Discussion: 82-year-old female with history of chronic atrial fibrillation states she does not know when she last took her medications, was taken off anticoagulation sometime ago fell on the floor this morning and was sufficiently weak to require assistance getting up. She suffered minor injuries as a consequence of the fall but is significantly weak, appears dehydrated and is found to be in rapid atrial fibrillation. She is started on diltiazem in the emergency department requires hospitalization for further characterization and stabilization of her illness Discharge Plan Departure Patient Disposition: Admitted As Inpatient Clinical Impression: Atrial fibrillation with rapid ventricular response, Laceration of left hand Admit Date/Time: 12/11/22 08:47 Admit Provider: Gertrude Benitez
--- NOTE | 2022-12-11 07:50 | DI.RAD.S_ITS ---
PROCEDURE: XR CHEST 1V INDICATIONS: weak, fall, left rib pain TECHNIQUE: One view of the chest was acquired. COMPARISON: [facility], CR, XR CHEST 1V, 08/14/2018, 14:58. FINDINGS: Surgical changes and devices: None. Lungs and pleura: Significant interval progression of a diffuse pulmonary process. Consider pulmonary edema superimposed on diffuse interstitial pulmonary fibrosis. There is a small right pleural effusion. No pleural effusions or pneumothorax. Mediastinum: Mediastinal contours appear normal. Development of significant cardiomegaly. Bones and chest wall: No suspicious bony lesions. Overlying soft tissues appear unremarkable. IMPRESSION: 1. Development of significant cardiomegaly. 2. Findings may potentially represent acute pulmonary edema superimposed on chronic interstitial pulmonary fibrosis. There is also a right pleural effusion. Dictated by: Ean Brown M.D. on 12/11/2022 at 8:39 Approved by: Ean Brown M.D. on 12/11/2022 at 8:41
[2022-12-11] MEDS: SODIUM CHLORIDE 0.9% 500 ML 1000 ML IV (07:57)
[2022-12-11 08:14] LABS: Add Manual Diff / Slide Review NO; Basophils Absolute Auto 300 /uL (0-100); Basophils Percent Auto 2.8 % (0-2); Eosinophils Absolute Auto 100 /uL (0-450); Eosinophils Percent Auto 1.4 % (2-4); Hematocrit 41.7 % (36-46); Hemoglobin 13.9 g/dL (12.0-16.0); Lymphocytes Absolute Auto 1400 /uL (1100-4500); Lymphocytes Percent Auto 13.7 % (25-40); Mean Corpuscular HGB Conc 33.4 % (30-36); Mean Corpuscular Volume 98.7 fL (80-100); Monocytes Absolute Auto 900 /uL (0-900); Monocytes Percent Auto 8.4 % (3-14); Neutrophils Absolute Auto 7500 /uL (1500-7000); Neutrophils Percent Auto 73.7 % (50-75); Platelet Count 218 X10^3/uL (150-400); Red Blood Cell Count 4.23 X10^6/uL (4.0-5.2); Red Cell Distribution Width 16.1 % (11.6-14.8); White Blood Cell Count 10.2 X10^3/uL (4.5-11.0)
[2022-12-11 08:26] LABS: Alanine Aminotransferase 24 IU/L (<35); Albumin 3.5 g/dL (3.5-5.0); Alkaline Phosphatase 147 U/L (38-126); Aspartate Aminotransferase 43 IU/L (14-36); BUN Creatinine Ratio 32.8 (6-22); Bilirubin Total 1.7 mg/dL (0.2-1.3); Blood Urea Nitrogen 21 mg/dL (7-17); Calcium 8.7 mg/dL (8.4-10.2); Carbon Dioxide 22 mmol/L (22-32); Chloride 103 mmol/L (98-107); Creatine Kinase 46 U/L (30-135); Estimated Glomerular Filt Rate > 60 mL/min (>60); Globulin 3.6 g/dL (1.7-4.1); Glucose 123 mg/dL (80-110); HEMOLYSIS 41 (0-50); Potassium 4.2 mmol/L (3.4-5.1); Sodium 134 mmol/L (137-145); Total Protein 7.1 g/dL (6.3-8.2)
[2022-12-11] MEDS: dilTIAZem 5 MG/ML SDV 10 MG IV (08:34)
[2022-12-11] MEDS: LIDOCAINE 2% INJ SDV 5ML 5 ML (08:34)
[2022-12-11] MEDS: DILTIAZEM 125 MG/125 ML PIGGYBACK IV (08:35)
[2022-12-11 08:39] LABS: NT-proBNP (BNP-Adult 18+) 10900 pg/mL (<450); Troponin I 0.088 ng/mL (0.01-0.034)
[2022-12-11] MEDS: FUROSEMIDE 40 MG/4 ML VIAL IV (08:48)
[2022-12-11 11:45] LABS: MRSA (Nasal) PCR Not Detected (Not Detect)
--- NOTE | 2022-12-11 11:50 | P.HP_ITS ---
History of Present Illness History of Present Illness Chief complaint: GLF no thinners Narrative: Juanita Watson is an 82-year-old female nonsmoker with a reported history of atrial fibrillation and congestive heart failure who presented by EMS for evaluation a ground level fall and generalized weakness.? She stated that she was getting out of bed at about 4:00 a.m. on the morning of presentation and fell to the ground.? She thinks maybe she has some pain in her right shoulder and left-sided ribs but denied any other injury is an hand laceration.? She stated she did not strike her head and has no neck or back pain.? She denied any change in medications or any dietary change.? She stated that she has been eating and drinking without difficulty but did state that she thought her oral intake has been decreased.? She denied runny nose or sore throat.? She denied chest pain.? She stated that she is always short of breath and denied any new short of breath.? She has had no nausea, vomiting or diarrhea.? She denied dysuria, frequency or urgency.? She stated she slowly fell to the ground and was unable to get up for the past 2-3 hours prior to presentation. ? [facility] [place] Medical History Breast cancer CHF (congestive heart failure) Chronic a-fib CVA (cerebral vascular accident) Social History marital status: details: From [place], [facility] household members: none Smoking Status: Former smoker alcohol intake: former substance use type: does not use Comment: Patient is currently . Meds Home Medications and Allergies Home Medications Medication Instructions Recorded Confirmed Type metoprolol tartrate 25 mg tablet 25 mg PO BID ##0 07/23/11 12/11/22 History Allergies Allergy/AdvReac Type Severity Reaction Status Date / Time milk Allergy Mild Rhinitis; Verified 12/11/22 07:54 ear infection adhesive tape Allergy Unknown Rash, Verified 12/11/22 07:59 blisters cyclophosphamide Allergy Unknown Verified 12/11/22 07:54 diltiazem Allergy Unknown SWELLING, Verified 12/11/22 07:54 CHILLS, ITCHING, STATES IV OK doxorubicin [From Adriamycin] Allergy Unknown Neutropenic Verified 12/11/22 07:54 fever erythromycin base Allergy Unknown Rash Verified 12/11/22 07:54 [From Erythrocin] fluoride Allergy Unknown Rash Verified 12/11/22 07:54 paclitaxel Allergy Unknown Verified 12/11/22 07:59 Penicillins Allergy Unknown Rash Verified 12/11/22 07:59 Sulfa (Sulfonamide Allergy Unknown Verified 12/11/22 07:59 Antibiotics) tamoxifen Allergy Unknown Bleeding, Verified 12/11/22 07:59 TIA? tetracycline Allergy Unknown Rash Verified 12/11/22 07:59 vancomycin Allergy Unknown Redness of Verified 12/11/22 07:59 Skin prednisone AdvReac Unknown HYPERTENSION, Verified 12/11/22 07:59 SWELLING, WEIGHT GAIN temazepam [From Restoril] AdvReac Unknown Dizziness Verified 12/11/22 07:59 trastuzumab [From Herceptin] AdvReac Unknown flu-like Verified 12/11/22 07:54 symptoms Review of Systems Review of Systems Narrative: Fourteen system review was completed and pertinent findings in the history of chief complaint. Exam Vital Signs (past 8 hours): - 12/11/22 08:03 12/11/22 08:34 12/11/22 07:47 Temperature 97.8 F Pulse Rate 126 H 122 H 122 H Respiratory Rate 23 Blood Pressure 173/104 H 163/113 H Pulse Oximetry 97 Oxygen Delivery Method Room Air 12/11/22 07:50 12/11/22 07:50 12/11/22 07:53 Temperature Pulse Rate 117 H 113 H Respiratory Rate Blood Pressure 188/119 H Pulse Oximetry 94 97 Oxygen Delivery Method 12/11/22 08:00 12/11/22 08:30 12/11/22 08:30 Temperature Pulse Rate 124 H Respiratory Rate 23 Blood Pressure 173/104 H 163/113 H Pulse Oximetry Oxygen Delivery Method 12/11/22 08:45 12/11/22 08:45 12/11/22 08:50 Temperature Pulse Rate 96 H Respiratory Rate 13 Blood Pressure 139/86 143/107 H Pulse Oximetry 93 Oxygen Delivery Method 12/11/22 08:50 12/11/22 08:55 12/11/22 08:55 Temperature Pulse Rate 95 H 96 H Respiratory Rate Blood Pressure 157/103 H Pulse Oximetry 96 94 Oxygen Delivery Method 12/11/22 09:00 12/11/22 09:00 12/11/22 09:05 Temperature Pulse Rate 94 H 93 H Respiratory Rate 23 15 Blood Pressure 155/110 H Pulse Oximetry 94 93 Oxygen Delivery Method 12/11/22 09:05 12/11/22 09:10 12/11/22 09:10 Temperature Pulse Rate 89 Respiratory Rate 21 Blood Pressure 148/99 H 153/95 H Pulse Oximetry 93 Oxygen Delivery Method 12/11/22 09:15 12/11/22 09:15 12/11/22 09:20 Temperature Pulse Rate 91 H Respiratory Rate 23 Blood Pressure 168/85 H 170/93 H Pulse Oximetry 94 Oxygen Delivery Method 12/11/22 09:20 12/11/22 09:25 12/11/22 09:25 Temperature Pulse Rate 93 H 90 Respiratory Rate 17 16 Blood Pressure 155/84 H Pulse Oximetry 93 92 Oxygen Delivery Method 12/11/22 09:30 12/11/22 09:30 12/11/22 09:35 Temperature Pulse Rate 88 86 Respiratory Rate 19 18 Blood Pressure 127/83 Pulse Oximetry 94 94 Oxygen Delivery Method 12/11/22 09:35 12/11/22 09:40 12/11/22 09:40 Temperature Pulse Rate 91 H Respiratory Rate 19 Blood Pressure 143/85 H 135/86 Pulse Oximetry 93 Oxygen Delivery Method 12/11/22 09:45 12/11/22 09:45 12/11/22 09:50 Temperature Pulse Rate 89 Respiratory Rate 27 H Blood Pressure 145/88 H 146/94 H Pulse Oximetry 93 Oxygen Delivery Method 12/11/22 09:50 12/11/22 09:55 12/11/22 09:55 Temperature Pulse Rate 98 H 96 H Respiratory Rate 21 25 H Blood Pressure 150/89 H Pulse Oximetry 93 93 Oxygen Delivery Method 12/11/22 10:00 12/11/22 10:00 12/11/22 08:54 Temperature Pulse Rate 91 H Respiratory Rate 24 Blood Pressure 159/80 H Pulse Oximetry 93 Oxygen Delivery Method Room Air 12/11/22 10:25 12/11/22 10:30 12/11/22 11:00 Temperature 98.7 F Pulse Rate 87 92 H Respiratory Rate 24 34 H Blood Pressure 163/101 H 155/94 H Pulse Oximetry 93 96 Oxygen Delivery Method 12/11/22 11:00 Temperature Pulse Rate 91 H Respiratory Rate 26 H Blood Pressure Pulse Oximetry 94 Oxygen Delivery Method Oxygen Delivery Method Room Air Narrative Exam Narrative: GENERAL: patient appears stated age of 82 years.? Frail and elderly, very hard of hearing.? HEAD: Atraumatic. Normocephalic.? No contusion or abrasion, no laceration, no evidence of depressed skull fracture EYES: Pupils equal round and reactive.? No hyphema Extraocular motions intact. No scleral icterus. No injection or drainage. ENT:? Dry mucous membranes. Nose without bleeding, purulent drainage. Throat without erythema, tonsillar hypertrophy or exudate. Airway patent. NECK: Trachea midline. Non tender, no step-offs or crepitance CARDIOVASCULAR:? Irregular rhythm without murmurs, gallops, or rubs. RESPIRATORY: Clear to auscultation. Breath sounds equal bilaterally. No wheezes, rales, or rhonchi.? GASTROINTESTINAL: Abdomen soft, non-tender, nondistended. EXTREMITIES:? 1+ pitting edema on bilateral lower extremities.? Left hand with 3 cm superficial laceration in the webspace between 4th and 5th fingers, no bone or tendon involvement. This has been treated by ER physician. BACK: Nontender without deformity or crepitance. No flank tenderness. NEURO: AOx3. SKIN:? Poor skin turgor with general dehydrated skin. Groin rash, [id number]. Objective Labs 12/11/22 08:00 12/11/22 08:00 Labs: Laboratory Results - last 24 hr 12/11/22 12/11/22 12/11/22 08:00 08:00 10:25 WBC 10.2 RBC 4.23 Hgb 13.9 Hct 41.7 MCV 98.7 MCH 33.0 MCHC 33.4 RDW 16.1 H Plt Count 218 Neut % (Auto) 73.7 Lymph % (Auto) 13.7 L [place] % (Auto) 8.4 Eos % (Auto) 1.4 L Baso % (Auto) 2.8 H Neut # (Auto) 7500 H Lymph # (Auto) 1400 [place] # (Auto) 900 Eos # (Auto) 100 Baso # (Auto) 300 H Sodium 134 L Potassium 4.2 Chloride 103 Carbon Dioxide 22 BUN 21 H Creatinine 0.64 Estimated GFR > 60 BUN/Creatinine Ratio 32.8 H Glucose 123 H Calcium 8.7 Magnesium 2.0 Total Bilirubin 1.7 H AST 43 H ALT 24 Alkaline Phosphatase 147 H Total Creatine Kinase 46 Troponin I 0.088 H NT-Pro-B Natriuret Pep 72315 H Total Protein 7.1 Albumin 3.5 Globulin 3.6 Albumin/Globulin Ratio 1.0 Nasal Screen MRSA (PCR) Not detected Assessment & Plan Assessment & Plan narrative: 1. Rapid atrial fibrillation. Treated with intravenous diltiazem loaded dose to followed by intravenous infusion. Initially admitted to ICU for monitoring. Settled at the time of my examination. Transitioned to metoprolol IR 25 mg p.o. b.i.d. continue to monitor telemetry. Due to fall and likely possible frequent falls in this patient a NOAC will not be started and the patient will be contin ued on ASA 325 mg p.o. daily and during this hospitalization provided with enoxaparin 40 mg subQ daily. 2. Congestive heart failure. Intravenous furosemide given in the ER. Continue with oral furosemide daily starting December 12, 2022. Patient has been initiated on a beta-may and will have a SASHA-inhibitor of low-dose lisinopril 2.5 mg initiated as well. Pending echocardiogram. 3. History of breast cancer. No active treatment. 4. History of CVA. Currently being treated with ASA 325 mg p.o. daily. We will initiate atorvastatin 80 mg daily. 5. Bilateral groin rash consistent with candidiasis. Treat with clotrimazole 1% with betamethasone 0.05% cream b.i.d. for 5 days. 6. Peripheral edema consistent with underlying congestive heart failure. Somewhat in the ER we will continue with furosemide 20 mg daily each morning. Follow peripheral edema clinically. Follow labs and patient clinically. Code status: Do not resuscitate/do not intubate Surrogate decision maker: Friend, Sophia Garcia DVT prophylaxis: Enoxaparin 40 mg subQ daily COVID-19 COVID-19 status: Not tested Time Spent With Patient Time with patient: 70 minutes or more, with 50% spent counseling/coordinating Quality VTE Deep Vein Thrombosis/Pulmonary Embolism Present on Admission: No MIPS - Admit I confirm the patient?s Advance Care Plan is present, Code status is documented, Surrogate decision maker is in patient?s record [If Yes, STOP here]: Yes MIPS - Meds 'Current medications' to include all prescriptions, [id number]-[id number] products, herbals, cannabis/cannabidiol products, and vitamin/mineral/dietary (nutritional) supplements. I have utilized all available resources to obtain, update, or review the p atient?s current medications. [If Yes, STOP here]: Yes
--- NOTE | 2022-12-11 12:00 | DI.ECHO.S_ITS ---
[facility] +---------+ : : [address] : : : : [id number] : : : : Phone: [phone] Echocardiogram Report + + :Name: BURKE CHI Study Date: 12/12/2022 Height: 66 in : :[facility] ReadingLocation: Weight: 145 lb : : Gender: Female BSA: 1.7 m2 : :: 1940 Age: 82 yrs BP: 147/66 mmHg: :Reason For Study: ATRIAL FIBRILLATION : :Ordering Physician: LAURA, : :TAMIA SOW Performed By: Jocelyn Paige : :Referring: TAMIA SANCHEZ MD : + + Interpretation Summary The patient was in atrial fibrillation with heart rates between 66-94 bpm during the exam. The left ventricle is normal in size and wall thickness. Left ventricular systolic function is severely reduced. LV ejection fraction 20 to 25%. Previously 60 to 65%. Left ventricular function has significantly worsened compared to the previous exam. The right ventricle is normal size. Right ventricular systolic function is moderately reduced. There is severe mitral annular calcification. The mitral valve mean gradient is 3.1 mmHg. There is mild mitral stenosis. There is mild to moderate mitral regurgitation. Previously moderate MR. There is mild to moderate aortic regurgitation.Compared to the prior echo study, there has been an increase in the severity of aortic regurgitation. There is mild to moderate tricuspid regurgitation. Compared to the prior echo exam, there has been an increase in TR severity. The right ventricular systolic pressure is estimated to be at least 42 mmHg based on an estimated right atrial pressure of 8 mm Hg. Compared to the prior echo exam, there has been an increase in the severity of pulmonary hypertension. There is moderate luminal irregularity and echogenicity in the abdominal aorta, suggestive of aortic atherosclerotic disease. Localized small pericardial effusion anterior to the right atrium and basal right ventricular free wall best seen in subcostal view. No echo evidence of tamponade.BP: 147/66 mmHg Procedure: A two-dimensional transthoracic echocardiogram with color flow and Doppler was performed. The study quality was technically adequate. Comparison is made with the echocardiogram of 11/11/2020. The patient was in atrial fibrillation with heart rates between 66-94 bpm during the exam. Left Ventricle: The left ventricle is normal in size and wall thickness. There is no thrombus. The ejection fraction is estimated to be 20-25%. Left ventricular systolic function is severely reduced. Left ventricular function has significantly worsened compared to the previous exam. There is severe global hypokinesis of the left ventricle. Diastolic function could not be accurately assessed due to atrial fibrillation. Right Ventricle: The right ventricle is normal size. Right ventricular systolic function is moderately reduced. Atria: The left atrium is severely dilated. There has been no significant change since the previous study. The right atrium is moderately dilated. There is no Doppler evidence for an interatrial shunt. Mitral Valve: There is severe mitral annular calcification. The mitral valve leaflets are mildly calcified. The mitral valve chordae are thickened and/or calcified. The mitral valve mean gradient is 3.1 mmHg. There is mild mitral stenosis. There is mild to moderate mitral regurgitation. Aortic Valve: The aortic valve is mildly calcified. The aortic valve is trileaflet. There is no aortic valve stenosis. There is mild to moderate aortic regurgitation. Compared to the prior echo study, there has been an increase in the severity of aortic regurgitation. Tricuspid Valve: Tricuspid leaflets are thickened. There is mild to moderate tricuspid regurgitation. The right ventricular systolic pressure is estimated to be at least 42 mmHg based on an estimated right atrial pressure of 8 mm Hg. Compared to the prior echo exam, there has been an increase in TR severity. Compared to the prior echo exam, there has been an increase in the severity of pulmonary hypertension. Pulmonic Valve: The pulmonic valve leaflets are thin and pliable; valve motion is normal. There is mild pulmonic regurgitation. Great Vessels: The aortic root is normal size. The dimensions of the ascending aorta are normal. There is moderate luminal irregularity and echogenicity in the abdominal aorta, suggestive of aortic atherosclerotic disease. The IVC is dilated (diameter is greater than 2.1 cm) yet it collapses greater than 50% with a sniff. This suggests a right atrial pressure of 8 mm Hg. Pericardium/ Pleura There is no pericardial effusion. Localized small pericardial effusion anterior to the right atrium and basal right ventricular free wall best seen in subcostal view. No echo evidence of tamponade. There is no pleural effusion. MMode/2D Measurements & Calculations LVIDd: 4.7 cm LVOT diam: 1.9 cm LVIDs: 3.9 cm Ao root diam: 2.6 cm FS: 17.6 % asc Aorta Diam: 3.0 cm EPSS: 1.5 cm IVSd: 0.81 cm LVPWd: 0.90 cm LV tavares. diameter/BSA (cm/m^2): 2.7 LV sys. diameter/BSA (cm/m^2): 2.2 LA A2 area: 26.1 cm2 RA long axis: 5.4 cm LA A4 area: 29.2 cm2 RA area: 22.1 cm2 LA length (vol): 7.2 cm RA vol: 76.5 ml LA vol: 89.4 ml RA : 43.8 ml/m2 LA vol index: 51.3 ml/m2 IVC diam: 2.4 cm RVD1 (basal): 3.9 cm RVD2 (mid): 3.5 cm TAPSE: 1.4 cm Doppler Measurements & Calculations Ao V2 max: 114.1 cm/sec LVOT Max Kevin: 64.5 cm/sec Ao V2 mean: 80.4 cm/sec LV V1 max P.7 mmHg Ao max P.2 mmHg LV V1 VTI: 12.0 cm Ao mean P.8 mmHg NANCY(I,D): 1.6 cm2 Ao V2 VTI: 20.7 cm NANCY(V,D): 1.6 cm2 sev ratio: 0.58 NANCY indexed to BSA (cm^2/m^2): 0.92 AI P1/2t: 885.2 msec AI dec slope: 97.0 cm/sec2 MV E max kevin: 117.7 cm/sec TR max kevin: 293.4 cm/sec MV A max kevin: 0.95 cm/sec TR max P.4 mmHg MV E/A: 124.1 Lat Peak E' Kevin: 4.3 cm/sec E/E' lat: 27.3 MV dec time: 0.22 sec MVA(VTI): 1.3 cm2 MV V2 mean: 79.4 cm/sec SV(LVOT): 33.2 ml MV mean P.1 mmHg MV V2 VTI: 25.7 cm Reading Physician:11:37 AM
[2022-12-11] MEDS: METOPROLOL IR 25 MG TABLET PO ×2 (12:08→21:10)
[2022-12-11 12:13] LABS: Appearance Urine UA CLEAR; Bilirubin Urine UA NEGATIVE (NEGATIVE); Glucose Urine UA NEGATIVE (Negative); Ketones Urine UA NEGATIVE (NEGATIVE); Leukocyte Esterase Urine UA NEGATIVE (NEGATIVE); Nitrite Urine UA NEGATIVE (Negative); Occult Blood Urine UA TRACE-INTACT (Negative); Protein Urine UA NEGATIVE (Negative); Specific Gravity Urine UA <=1.005 (1.000-1.035); Urobilinogen Urine UA 0.2 E.U./dL (0.2)
[2022-12-11 12:25] LABS: pH Urine UA 5.5 (4.5-8.0)
[2022-12-11 12:26] LABS: Color Urine UA Clear
[2022-12-11 12:34] LABS: Bacteria Urine None Seen; Culture Indicated Urine Cult Not Indicated; RBC Urine 0-1/HPF (0-5/HPF); Squamous Epithelial Cell Urine None Seen (0-5/HPF); WBC Urine 0-1/HPF (0-5/HPF)
[2022-12-11] MEDS: ACETAMINOPHEN 325 MG TABLET 650 MG PO ×2 (13:06→21:27)
--- NOTE | 2022-12-11 14:03 | PC.NURSE ---
Pt arrived to unit around 1030 on diltiazem gtt at 5mg/hr, in afib with HR 90s. Pt VS stable upon arrival. Diltiazem Drip verified with another RN. RN reported to provider, who assessed bedside, a rash in patient's groin. Provider told RN to stop diltizem drip 2 hours after giving metoprolol PO.
[2022-12-11] MEDS: TRIAMCINOLONE 0.5% CREAM 1 APPLIC TOP ×2 (16:30→21:12)
[2022-12-11] MEDS: CLOTRIMAZOLE 1% CRM 30 GM 1 APPLIC TOP ×2 (16:31→21:12)
[2022-12-11] MEDS: ATORVASTATIN 20 MG TABLET 80 MG PO (21:10)
[2022-12-11] MEDS: SENNOSIDES 8.6 MG TABLET 17.2 MG PO (21:10)
[2022-12-11] MEDS: MELATONIN 3 MG TABLET PO (21:12)
--- NOTE | 2022-12-11 22:38 | PC.NURSE ---
2229--pt c/0 pain to right breast, pointed to specific point on breast; warm pack given; pt voiced anxiety; RN standing in room charting to provide pt company; she is distractable from the discomfort
[2022-12-12] VITALS (22 sets, daily range): BP systolic 104–165; BP diastolic 61–89; PULSE 74–87; RESP 12–30; TEMP 36.3–36.4; O2SAT 89–98
[2022-12-12 04:59] LABS: Add Manual Diff / Slide Review NO; Basophils Absolute Auto 0 /uL (0-100); Basophils Percent Auto 0.3 % (0-2); Eosinophils Absolute Auto 300 /uL (0-450); Eosinophils Percent Auto 2.8 % (2-4); Hematocrit 39.1 % (36-46); Hemoglobin 13.3 g/dL (12.0-16.0); Lymphocytes Absolute Auto 1600 /uL (1100-4500); Lymphocytes Percent Auto 17.7 % (25-40); Mean Corpuscular Hemoglobin 33.1 PG (26-34); Mean Corpuscular Volume 97.3 fL (80-100); Monocytes Absolute Auto 1100 /uL (0-900); Monocytes Percent Auto 11.8 % (3-14); Neutrophils Absolute Auto 6300 /uL (1500-7000); Neutrophils Percent Auto 67.4 % (50-75); Platelet Count 174 X10^3/uL (150-400); Red Blood Cell Count 4.02 X10^6/uL (4.0-5.2); White Blood Cell Count 9.3 X10^3/uL (4.5-11.0)
[2022-12-12 05:01] LABS: Alanine Aminotransferase 22 IU/L (<35); Albumin 2.8 g/dL (3.5-5.0); Albumin Globulin Ratio 0.9 (1.0-2.8); Alkaline Phosphatase 116 U/L (38-126); Aspartate Aminotransferase 29 IU/L (14-36); BUN Creatinine Ratio 33.8 (6-22); Bilirubin Unconjugated 0.5 mg/dL (0.0-1.1); Blood Urea Nitrogen 22 mg/dL (7-17); Calcium 7.9 mg/dL (8.4-10.2); Carbon Dioxide 28 mmol/L (22-32); Chloride 99 mmol/L (98-107); Estimated Glomerular Filt Rate > 60 mL/min (>60); Globulin 3.2 g/dL (1.7-4.1); Glucose 127 mg/dL (80-110); HEMOLYSIS < 15 (0-50); Potassium 3.6 mmol/L (3.4-5.1); Sodium 133 mmol/L (137-145)
[2022-12-12 05:12] LABS: NT-proBNP (BNP-Adult 18+) 9270 pg/mL (<450); Troponin I 0.091 ng/mL (0.01-0.034)
[2022-12-12] MEDS: POTASSIUM CHLORIDE 20 MEQ TAB PO ×2 (08:34→17:08)
[2022-12-12] MEDS: ENOXAPARIN 40 MG/0.4 ML SYRINGE SUBCUT (08:35)
[2022-12-12] MEDS: ASPIRIN EC 325 MG TABLET PO (08:35)
[2022-12-12] MEDS: CYANOCOBALAMIN (VITAMIN B-12) 500 MCG TABLET PO (08:35)
[2022-12-12] MEDS: ASCORBIC ACID 500 MG TABLET PO (08:35)
[2022-12-12] MEDS: FOLIC ACID 1 MG TABLET 0.5 MG PO (08:36)
[2022-12-12] MEDS: FUROSEMIDE 40 MG TABLET PO ×2 (08:36→17:08)
[2022-12-12] MEDS: lisinopriL 5 MG TABLET 2.5 MG PO (08:36)
[2022-12-12] MEDS: CLOTRIMAZOLE 1% CRM 30 GM 1 APPLIC TOP ×2 (08:37→20:33)
[2022-12-12] MEDS: METOPROLOL IR 25 MG TABLET PO ×2 (08:37→20:32)
[2022-12-12] MEDS: TRIAMCINOLONE 0.5% CREAM 1 APPLIC TOP ×2 (08:38→20:33)
[2022-12-12 08:48] LABS: Troponin I 0.071 ng/mL (0.01-0.034)
[2022-12-12] MEDS: ACETAMINOPHEN 325 MG TABLET 650 MG PO (09:18)
--- NOTE | 2022-12-12 11:40 | ST.IPCSEOM ---
Visit Care Team Role Provider Type Doctor MD [facility] Primary Care Provider Non-Staff Specialty: Medical Address: Phone: Fax: Email: David Farrell MD Family Provider Physician Specialty: Internal Medicine Address: [address] [place] [address], [address] Email: [email or web address] Pelon Yanez DO Emergency Provider Physician Referring Provider Specialty: Emergency Medicine Address: [address] [place] [address], [address] Email: [email or web address] Gertrude Benitez MD Admit Provider Physician Attending Provider Specialty: Family Practice Address: [address] [place] [address], [address] Phone: Fax: Email: [email or web address] Current Diagnoses Heart failure, unspecified (12/11/22) Past Medical History (Last Reviewed 12/11/22 @ 11:50 by Gertrude Benitez MD) Breast cancer (Medical) CHF (congestive heart failure) (Medical) Chronic a-fib (Medical) CVA (cerebral vascular accident) (Medical) Speech-Language Pathology Swallow Evaluation REAL ESTATE OFFICE SUPERVISOR Clinical Swallow Evaluation Start: 12/12/22 11:16 Freq: Status: Active Protocol: Document 12/12/22 11:16 LNK (Rec: 12/12/22 11:39 LNK [id number]) Clinical Swallow Evaluation Session Time Visit Start Time 09:45 Visit Stop Time 10:15 Total Visit Minutes 30 Setting Assessment Location Acute Care Visit Type Note Type Initial evaluation Patient Information Identification Type Name,ID Card History Juanita Watson is an 82-year- old female nonsmoker with a reported history of atrial fibrillation and congestive heart failure who presented by EMS for evaluation a ground level fall and generalized weakness.She stated she did not strike her head and has no neck or back pain.? She denied any change in medications or any dietary change.? She stated that she has been eating and drinking without difficulty but did state that she thought her oral intake has been decreased .? Nursing reported to this REAL ESTATE OFFICE SUPERVISOR that the pt had eaten all of her breakfast. Subjective Observations Pt was dozing in her bed and awoke at the sound of her name . Pt was agreeable to swallow assessment. pt is very CACHIL DEHE. She has a small white board at her bedside. Reported by Patient/Caregiver Comment Pt c/o discomfort in her left hand, which was bandaged. Current Diet Regular (IDDSI 7) Baseline Feeding Method Independent in self-feeding The IDDSI Framework Protocol: IDDSI.1 Objective Assessment Mental Status Alert,Responsive,Cooperative Oral Integrity WFL Dentition Missing teeth Lip Function Within normal limits Tongue Function Within normal limits Jaw Function Within normal limits Hard/Soft Palate Function Within normal limits Respiratory Sufficiency Within normal limits Comment OME and DKS indicated structures and function to be WFL. Pt has missing at least 3 teeth. Her mastication of a cracker was adequate with rotary chew observed. Food and Liquid Trials Position During Assessment Upright (90 degrees) Liquids Trialed Thin (IDDSI 0) Solid Trials Regular (IDDSI 7) Administration Type Cup single sip,Straw,Self- feeding Oral Impairment Within functional limits Oral Phase Comments Pt was observed to eat a dry cracker without difficulty. Goot mastication and rotary chew observed. Minimal oral residue noted after pt swallowed (crack on surface areas of posterior teeth. Pharyngeal Impairment Within functional limits Pharyngeal Phase Comments Good hyolaryngeal elevation noted with all swallows. Pt safely tolerated thin liquids via straw without s/sx aspiration. No cough, throat clear, or wet voicing post swallow observed. Results Pt presented with swallow function WFL. Pt is safe to continue with thin liquids and regular texture. Pt at low aspiration risk. The IDDSI Framework Protocol: IDDSI.1 Findings Swallowing Function Within functional limits Impact on Safety and Functioning No limitations Recommendations Instrumental Assessment No Swallowing Treatment No Recommended Solids Regular (IDDSI 7) Recommended Liquids Thin (IDDSI 0) Other Recommendations During the evaluation session, pt's speech and language skills were screened. Pt did not demonstrate word finding difficulties or s/sx of aphasia or dysarthria. She did pause once in a while during conversation in order to gather her thoughts. Her speech was 100% intelligible. Pt was able to recall events and was oriented x3. P was able to converse without difficulty. Safety Precautions/Swallowing Reduce distractions,Remain Recommendations upright (90 degrees) during all oral intake Medication Recommendations As Tolerated,Whole in Carrier, Crushed in Carrier Discharge Recommendations senior care facility,[facility] care facility Education Patient/Caregiver Education Described results of evaluation,Patient expressed understanding of evaluation
--- NOTE | 2022-12-12 12:00 | OT.IP.EVAL ---
Current Diagnoses Heart failure, unspecified (12/11/22) Past Medical History (Last Reviewed 12/11/22 @ 11:50 by Gertrude Benitez MD) Breast cancer CHF (congestive heart failure) Chronic a-fib CVA (cerebral vascular accident) Occupational Therapy Inpatient Evaluation/Re-Eval M1 PT/OT-IP Prior Functional Status Start: 12/12/22 13:49 Freq: NEEDED Status: Active Protocol: Document 12/12/22 13:49 CGR (Rec: 12/12/22 13:59 CGR [id number]) Medical Review Prior Functional Status Medical History Reviewed Yes Communication Pt is an effective verbal communicator Mobility and Gait Pt was MOD I with a 4WW at baseline. Activities of Daily Living and IADL's Pt was IND in all ADLs at baseline Social History Household Members none Living Arrangements Usp Facility Number of Stairs To Enter/Railing? no steps to enter Home Environment High Toilet,Walk in Shower, Built-In Shower Seat Home Equipment Four Wheel Walker,Grab Bars In Shower Employment Status Retired Additional Social History Comment Pt lives at [facility]. Pt get assist with house keeping, transportation, and lunch and dinner. M2 OT-IP Current Condition Start: 12/12/22 13:49 Freq: Status: Active Protocol: Document 12/12/22 13:49 CGR (Rec: 12/12/22 13:59 CGR [id number]) Occupational Therapy Current Condition Current Condition Evaluation Date 12/12/22 Treatment Diagnosis ground level fall, Afib and CHF Diagnosis Onset Date 12/11/22 M3 OT- IP Subjective and Pain Start: 12/12/22 13:49 Freq: Status: Active Protocol: Document 12/12/22 13:49 CGR (Rec: 12/12/22 13:59 CGR [id number]) OT- Subjective Occupational Therapy Visit Type Type Initial Evaluation Visit Start Time 11:17 Visit Stop Time 12:00 Total Visit Minutes 43 Notes Nursing getting pt ready to get up to toilet OT Pain Assessment Pain When Pain Assessed At Rest Pain Present Pain Present Denied Pain M4 OT- IP ADL's Start: 12/12/22 13:49 Freq: Status: Active Protocol: Document 12/12/22 13:49 CGR (Rec: 12/12/22 13:59 CGR [id number]) OT [id number] Comments OT Self-Feeding Comments not meal time OT ADL-Grooming General Evaluation Grooming Ability Standby Assistance Areas Needing Assistance Face Washing Comments OT Grooming Comments standing at sink OT ADL-Oral Care General Eval Oral Care Ability Standby Assistance Areas of Assistance Brushing Teeth Comments Oral Care Comments standing at sink OT ADL-Dressing General Eval Lower Body Dressing Ability Minimal Assistance Areas Needing Assistance Underpants/Brief Comments OT Dressing Comments seated in chair OT ADL-Toileting General Evaluation Toileting Ability Standby Assistance Comments OT Toileting Comments Pt had large BM seated on toilet. OT ADL-Bathing Comments OT Bathing Comments not performed M5 OT- IP IADL's Start: 12/12/22 13:49 Freq: Status: Active Protocol: Document 12/12/22 13:49 CGR (Rec: 12/12/22 13:59 CGR [id number]) OT-Instrumental Activities of Daily Living Deficits IADL Deficits Identified No Deficits Home Safety Awareness Awareness of Need for Assistance at Home Good Awareness Ability to Problem Solve Emergency Able to Problem Solve Situations Medication Management Medication Management No Deficits Identified Money Management Money Management No Deficits Identified Meal Preparation Meal Preparation Caregiver Provides Assist Tool And Fixture Repairer Tool And Fixture Repairer Caregiver Provides Assist Driving Driving Caregiver Provides Assist M6 OT- IP Functional Cognition Start: 12/12/22 13:49 Freq: Status: Active Protocol: Document 12/12/22 13:49 CGR (Rec: 12/12/22 13:59 CGR [id number]) Cognitive Factors Limiting Selfcare Function Cognitive Ability Level of Alertness Alert Patient Orientation Name,Age,Birthday,Month,Date, Year,Day of Week,Place, Situation Attention Span Ability Capable of Focused Attention, Capable of Sustained Attention Ability to Follow Commands Able to Follow Multi-Step Commands OT- Vision and Hearing OT- Hearing Assessment OT- Hearing Assessment Hearing Impaired OT- Vision Assessment Visual Acuity Glasses For Reading Visual Attentiveness WFL Occular Pursuits WFL Visual Convergence WFL Vision Assessment Comments without smooth persuits M7 OT- IP Mobility and Balance Start: 12/12/22 13:49 Freq: Status: Active Protocol: Document 12/12/22 13:49 CGR (Rec: 12/12/22 13:59 CGR [id number]) OT- Bed Mobility Assessment Supine to Sit Supine to Sit Assist Standby Assistance,Head of Bed Elevated Scooting Scooting to Edge of Bed Standby Assistance OT-Transfer Assessment Sit to and From Stand Sit to and from Stand Standby Assistance Transfers Transfer Ability Standby Assistance Technique Transfer Destination Bed,Chair,Toilet Transfer Technique Stand Step Pivot Devices Transfer Assistive Devices Gait Belt,Front Wheeled Walker Comments Mobility Comments Mobility from the bed to the toilet for BM then up to sink and back to chair. OT- Balance Assessment Sitting Balance and Reactions Static Sitting Balance Ability Normal Dynamic Sitting Balance Ability Normal M8 OT- IP Objective Assessments Start: 12/12/22 13:49 Freq: Status: Active Protocol: Document 12/12/22 13:49 CGR (Rec: 12/12/22 13:59 CGR [id number]) OT Gross Range of Motion Upper Extremity Range of Motion Assessment Within Functional Limits OT Strength Upper Extremity Strength Assessment Within Functional Limits Comments Strength Comments 4+/5 OT- Coordination Assessment Upper Extremity Finger to Nose Test Within Functional Limits Finger Tapping Test Within Functional Limits OT-Muscle Tone Assessment Muscle Tone WNL Yes OT Sensation Assessment Edema Edema Absent M9 OT- IP Assessment and Plan Start: 12/12/22 13:49 Freq: Status: Active Protocol: Document 12/12/22 13:49 CGR (Rec: 12/12/22 13:59 CGR [id number]) OT Summary Assessment and Plan Potential Rehabilitation Potential Good Analytic Complexity at Evaluation Moderate Summary OT Impairments Balance,Functional Mobility, Grooming,Dressing,Toileting, Bathing,Toilet Transfers, Shower Transfers,Activity Tolerance Progress Towards Goals Progressing Toward Goals Assessment Summary Pt presents as a moderate complexity evaluation s/p admit for fall at home. Pt with Afib and CHF which are currently limiting her ability to participate in ADLs effectively. Pt with SOB and demonstrates poor endurance after minimal activity. Pt will benefit from continued therapy services. Recommend d/ c to SNF. Goals Grooming Goal Independent Dressing Goal Independent Toileting Goal Independent Bathing Goal Independent Toilet Transfer Goal Independent Shower Transfer Goal Independent Days to Meet Goals 10 Frequency of Treatment Frequency Of Treatment Once a Day Treatment Plan OT Treatment Plan ADL Training,Functional Mobility,Patient/Family Education,Discharge Planning Other Treatment Recommendations and Next shower if able Treatment Focus Discharge Recommendations OT Discharge Recommendations Home vs SNF Transportation Needs at Discharge Private Vehicle
--- NOTE | 2022-12-12 13:53 | P.PN_ITS ---
Subjective Subjective Interval history: Patient has no new complaints. Is feeling slowly better. However not co mpletely well. Was worried about a urine infection but was informed that her urinalysis was clear. Patient is pleased with this. No new complaints. Exam Vital Signs (past 8 hours): - 12/12/22 06:00 12/12/22 06:00 12/12/22 06:00 Temperature Pulse Rate 74 Respiratory Rate 18 Blood Pressure 147/66 H Pulse Oximetry 90 L Oxygen Delivery Method Room Air 12/12/22 06:30 12/12/22 07:00 12/12/22 07:00 Temperature Pulse Rate 82 82 Respiratory Rate 25 H 22 Blood Pressure 147/83 H Pulse Oximetry 93 92 Oxygen Delivery Method 12/12/22 07:30 12/12/22 08:00 12/12/22 08:00 Temperature Pulse Rate 82 82 Respiratory Rate 20 20 Blood Pressure 142/85 H Pulse Oximetry 89 L 91 Oxygen Delivery Method 12/12/22 08:36 12/12/22 09:31 12/12/22 11:49 Temperature 97.5 F L 97.6 F Pulse Rate 87 86 Respiratory Rate 28 H Blood Pressure 142/85 H 136/89 Pulse Oximetry 98 Oxygen Delivery Method 12/12/22 12:08 Temperature Pulse Rate Respiratory Rate Blood Pressure Pulse Oximetry Oxygen Delivery Method Room Air Oxygen Delivery Method Room Air Narrative Exam Narrative: GENERAL: Frail and elderly, very hard of hearing.? In no acute medical distress. EYES: Pupils equal round and reactive.? Extraocular movements normal. NECK: Trachea midline. CARDIOVASCULAR:? Irregular rhythm without murmurs, gallops, or rubs. RESPIRATORY: Clear to auscultation. Breath sounds equal bilaterally. Some crackles persistent in the lower bases. GASTROINTESTINAL: Abdomen soft, non-tender, nondistended. EXTREMITIES:? Minimal pitting edema on bilateral lower extremities.? Left hand with 3 cm superficial laceration in the webspace between 4th and 5th fingers. Dressed. NEURO: AOx3. SKIN:? Groin rash, [id number]-left. Improving. Objective Labs 12/12/22 04:14 12/12/22 04:14 Labs: Laboratory Results - last 24 hr 12/12/22 12/12/22 12/12/22 04:14 04:14 08:15 WBC 9.3 RBC 4.02 Hgb 13.3 Hct 39.1 MCV 97.3 MCH 33.1 MCHC 34.0 RDW 16.0 H Plt Count 174 Neut % (Auto) 67.4 Lymph % (Auto) 17.7 L [place] % (Auto) 11.8 Eos % (Auto) 2.8 Baso % (Auto) 0.3 Neut # (Auto) 6300 Lymph # (Auto) 1600 [place] # (Auto) 1100 H Eos # (Auto) 300 Baso # (Auto) 0 Sodium 133 L Potassium 3.6 Chloride 99 Carbon Dioxide 28 BUN 22 H Creatinine 0.65 Estimated GFR > 60 BUN/Creatinine Ratio 33.8 H Glucose 127 H Calcium 7.9 L Total Bilirubin 1.0 Conjugated Bilirubin 0.0 Unconjugated Bilirubin 0.5 AST 29 ALT 22 Alkaline Phosphatase 116 Troponin I 0.091 H 0.071 H NT-Pro-B Natriuret Pep 9270 H Total Protein 6.0 L Albumin 2.8 L Globulin 3.2 Albumin/Globulin Ratio 0.9 L PFSH Medical History Breast cancer CHF (congestive heart failure) Chronic a-fib CVA (cerebral vascular accident) Social History marital status: details: From [place], [facility] household members: none Smoking Status: Former smoker alcohol intake: former substance use type: does not use Assessment & Plan Assessment & Plan narrative: 1. Rapid atrial fibrillation.? Treated with intravenous diltiazem loaded dose to followed by intravenous infusion.? Initially admitted to ICU for monitoring.? Transitioned to metoprolol IR 25 mg p.o. b.i.d. continue to monitor telemetry.? Rate not rapid currently. Due to fall and likely possible frequent falls in this patient a NOAC will not be started and the patient will be continued on ASA 325 mg p.o. daily and during this hospitalization provided with enoxaparin 40 mg subQ daily. 2. Congestive heart failure.? Intravenous furosemide given in the ER.? Continue with oral furosemide daily starting December 12, 2022. Increase this to 40 mg b.i.d. and increase potassium chloride supplementation as well to 20 mEq b.i.d. Patient has been initiated on a beta-may and will have a SASHA-inhibitor of low-dose lisinopril 2.5 mg initiated as well.? Echocardiogram shows 60-65% ejection fraction. 3. History of breast cancer.? No active treatment. 4. History of CVA.? Currently being treated with ASA 325 mg p.o. daily.? Atorvastatin 80 mg daily. 5. Bilateral groin rash consistent with candidiasis.? Treat with clotrimazole 1% with betamethasone 0.05% cream b.i.d. for 5 days. Improving with treatment. 6. Peripheral edema consistent with underlying congestive heart failure.? Continue diuresis with furosemide. Follow peripheral edema clinically. Follow labs and patient clinically. Code status:? Do not resuscitate/do not intubate Surrogate decision maker:? Friend, Sophia Garcia DVT prophylaxis:? Enoxaparin 40 mg subQ daily Quality VTE Deep Vein Thrombosis/Pulmonary Embolism Present on Admission: No
--- NOTE | 2022-12-12 14:09 | PT-IP ANOTE ---
Recieved PT orders. Completed chart review. Pt was tired from OT upon PT encounter. Pt notified PT will be back tomorrow. Pt is hard of hearing. Talking and MMT had her out of breath. Pt expressed preference for a late morning visit as she is not an early riser.
--- NOTE | 2022-12-12 16:00 | CM.DANOTE ---
DCP Brief Assessment Note: Patient is a 82yo female here under INPT following a GLF with CHF and Afib. PCP: Dr Farrell? Payer: Medicare and self pay VIDEO GAMES STORYWRITER reviewed EMR. Per provider in rounds, patient could benefit from PT/OT eval. VIDEO GAMES STORYWRITER placed verbal read back orders. Per OT, patient could benefit from SNF but she may improve enough by her third midnight (Monday) that she may be able to return home. Per OT note, patient uses a walker at baseline and has additional safety equipment at the facility. PT unable to work with patient at this time due to patient refusal. Per nursing staff, patient has concerns with paying her rent due tomorrow. Nursing staff reports patient does not have hearing aids at this time due to losing one of them and now patient does not use both. VIDEO GAMES STORYWRITER entered room and introduced self and role. Patient was sitting up and appeared A/Ox4, however, was extremely hard of hearing. VIDEO GAMES STORYWRITER utilized a white board throughout interaction. Patient reports she does not want to go to a SNF at this time and she wishes to return home. Patient reports living at [facility] and they assist her with transportation, housekeeping, and meal prep but other than that she is independent. Patient wishes to return there. Patient was fixated on rent check at time of assessment. VIDEO GAMES STORYWRITER called [facility] to inquire about their d/c from hospital policy. Paperhanger reported due to her being independent they do not need an assessment. Transport available from facility Tuesdays and 9am-3pm. VIDEO GAMES STORYWRITER spoke with billing officer, who reported to tell patient not to worry about her check until she returns from hospitalization. VIDEO GAMES STORYWRITER reported billing update to patient. This did not seem to satisfy her, as it was not in writing that she could pay her rent upon her return from the hospital. Per patient request, VIDEO GAMES STORYWRITER provided patient with an envelope for her check so she did not misplace it. This appeared to reduce patient anxiety. Plan: d/c plan pending patient prognosis. Likely to d/c back to [facility] when medically stable. Inquire about HH for nursing/PT/OT. CM team will continue to follow closely. JESI Cardoso Discharge Planning/Care Management CM Discharge Assessment Start: 12/12/22 15:56 Freq: Status: Active Protocol: Document 12/12/22 15:56 (Rec: 12/12/22 16:00 [id number]) Discharge Planning Assessment Assigned Biology Department Chair JESI Dee Advance Directives? No History Provided By Patient,Medical Record Prior Living Arrangements [facility] Facility Comment [facility] Household Members none Type of transporation used prior to Relies on Others admit Comment facility transportation [facility]: [facility] Willing to Return to Facility? Yes Independent with ADL's Yes Is patient alert and oriented? Yes Needs Assistance With Meal Prep,Home Chores / Shopping Comment [facility] assists her with housekeeping, transportation, and meals DME Already Rented / Owned FWW / Walker Comment walk in shower, built in shower seat Barriers to Discharge Yes Comment Patient is extremely hard of hearing. This proves to be a barrier in communication. Utilizing a white board at this time. Discharge Plan Home Transportation Arrangement facility transportation is available and between 9am-3pm SNF/HH Preference patient does not want to go to a SNF at this time. Whiteboard Updated in Patient Room with Yes name and ext. # of Biology Department Chair Review Status In Process Next Review Type Continued Stay Review
[2022-12-12] MEDS: SODIUM CHLORIDE 0.9% FLUSH 10 ML IV (20:32)
[2022-12-12] MEDS: MELATONIN 3 MG TABLET PO (20:33)
[2022-12-12] MEDS: ATORVASTATIN 20 MG TABLET 80 MG PO (20:33)
[2022-12-12] MEDS: SENNOSIDES 8.6 MG TABLET 17.2 MG PO (20:33)
[2022-12-13] VITALS (7 sets, daily range): BP systolic 124–147; BP diastolic 60–90; PULSE 69–91; RESP 17–26; TEMP 36.2–36.7; O2SAT 93–98
[2022-12-13 04:46] LABS: Alanine Aminotransferase 20 IU/L (<35); Albumin 2.7 g/dL (3.5-5.0); Albumin Globulin Ratio 0.8 (1.0-2.8); Alkaline Phosphatase 122 U/L (38-126); Aspartate Aminotransferase 25 IU/L (14-36); BUN Creatinine Ratio 25.8 (6-22); Blood Urea Nitrogen 16 mg/dL (7-17); Calcium 7.8 mg/dL (8.4-10.2); Carbon Dioxide 29 mmol/L (22-32); Chloride 100 mmol/L (98-107); Estimated Glomerular Filt Rate > 60 mL/min (>60); Globulin 3.2 g/dL (1.7-4.1); Glucose 127 mg/dL (80-110); HEMOLYSIS < 15 (0-50); Potassium 3.6 mmol/L (3.4-5.1); Sodium 133 mmol/L (137-145); Total Protein 5.9 g/dL (6.3-8.2)
[2022-12-13 04:47] LABS: Add Manual Diff / Slide Review NO; Basophils Absolute Auto 100 /uL (0-100); Basophils Percent Auto 0.6 % (0-2); Eosinophils Absolute Auto 200 /uL (0-450); Eosinophils Percent Auto 2.4 % (2-4); Hematocrit 39.3 % (36-46); Hemoglobin 13.2 g/dL (12.0-16.0); Lymphocytes Absolute Auto 1500 /uL (1100-4500); Lymphocytes Percent Auto 16.3 % (25-40); Mean Corpuscular HGB Conc 33.5 % (30-36); Mean Corpuscular Hemoglobin 32.6 PG (26-34); Mean Corpuscular Volume 97.3 fL (80-100); Monocytes Absolute Auto 900 /uL (0-900); Monocytes Percent Auto 10.2 % (3-14); Neutrophils Absolute Auto 6400 /uL (1500-7000); Neutrophils Percent Auto 70.5 % (50-75); Platelet Count 197 X10^3/uL (150-400); Red Blood Cell Count 4.04 X10^6/uL (4.0-5.2); Red Cell Distribution Width 15.7 % (11.6-14.8); White Blood Cell Count 9.1 X10^3/uL (4.5-11.0)
[2022-12-13 04:55] LABS: NT-proBNP (BNP-Adult 18+) 9590 pg/mL (<450)
[2022-12-13] MEDS: FUROSEMIDE 40 MG TABLET PO ×2 (08:03→16:52)
[2022-12-13] MEDS: POTASSIUM CHLORIDE 20 MEQ TAB PO ×2 (08:03→16:52)
[2022-12-13] MEDS: FOLIC ACID 1 MG TABLET 0.5 MG PO (08:04)
[2022-12-13] MEDS: ASCORBIC ACID 500 MG TABLET PO (08:04)
[2022-12-13] MEDS: CYANOCOBALAMIN (VITAMIN B-12) 500 MCG TABLET PO (08:04)
[2022-12-13] MEDS: lisinopriL 5 MG TABLET 2.5 MG PO (08:05)
[2022-12-13] MEDS: METOPROLOL IR 25 MG TABLET PO ×2 (08:05→20:24)
[2022-12-13] MEDS: TRIAMCINOLONE 0.5% CREAM 1 APPLIC TOP ×2 (08:06→20:20)
[2022-12-13] MEDS: SODIUM CHLORIDE 0.9% FLUSH 10 ML IV ×2 (08:06→20:25)
[2022-12-13] MEDS: CLOTRIMAZOLE 1% CRM 30 GM 1 APPLIC TOP ×2 (08:06→20:21)
[2022-12-13] MEDS: APIXABAN 5 MG TABLET PO ×2 (08:32→20:24)
--- NOTE | 2022-12-13 10:36 | PT.IIE ---
Current Diagnoses Heart failure, unspecified (12/11/22) Medical History (Last Reviewed 12/11/22 @ 11:50 by Gertrude Benitez MD) Breast cancer CHF (congestive heart failure) Chronic a-fib CVA (cerebral vascular accident) Physical Therapy Inpatient Evaluation/Re-Eval M1 PT/OT-IP Prior Functional Status Start: 12/12/22 12:26 Freq: NEEDED Status: Active Protocol: Document 12/13/22 10:36 AB (Rec: 12/13/22 13:41 AB [id number]) Medical Review Prior Functional Status Medical History Reviewed Yes Communication able to make needs known; very [place] Mobility and Gait Pt was MOD I with a 4WW at baseline. Activities of Daily Living and IADL's Pt was IND in all ADLs at baseline Social History Household Members none Living Arrangements Care Home Facility Number of Stairs To Enter/Railing? pt lives at [facility] that provides assist with meals, laundry and house cleaning per pt Home Environment Standard Height Toilet,Walk in Shower,Built-In Shower Seat Home Equipment Front Wheel Walker,Manual Wheelchair,Shower Seat without Backrest,Grab Bars In Shower M1 PT/OT-IP Prior Functional Status Start: 12/12/22 13:49 Freq: NEEDED Status: Active Protocol: Document 12/12/22 13:49 CGR (Rec: 12/12/22 13:59 CGR [id number]) Medical Review Prior Functional Status Medical History Reviewed Yes Communication Pt is an effective verbal communicator Mobility and Gait Pt was MOD I with a 4WW at baseline. Activities of Daily Living and IADL's Pt was IND in all ADLs at baseline Social History Household Members none Living Arrangements Care Home Facility Number of Stairs To Enter/Railing? no steps to enter Home Environment High Toilet,Walk in Shower, Built-In Shower Seat Home Equipment Four Wheel Walker,Grab Bars In Shower Employment Status Retired Additional Social History Comment Pt lives at [facility]. Pt get assist with house keeping, transportation, and lunch and dinner. M2 PT-IP Current Condition Start: 12/12/22 12:26 Freq: NEEDED Status: Active Protocol: Document 12/13/22 10:36 AB (Rec: 12/13/22 13:41 AB [id number]) Physical Therapy Current Condition Current Condition Evaluation Date 12/13/22 Treatment Diagnosis GLF; A-fib; difficulty in walking Onset Date 12/11/22 M3 PT-IP Subjective Start: 12/12/22 12:26 Freq: NEEDED Status: Active Protocol: Document 12/13/22 10:36 AB (Rec: 12/13/22 13:41 AB [email or web address]) Subjective Physical Therapy Visit Type Type Initial Evaluation Visit Start Time 10:36 Visit Stop Time 11:07 Total Visit Minutes 31 Number of MANAGER OF COMPLIANCE Visits 0 Physical Therapy Visit Comments Patient Comments agreeable to do PT M4 PT-IP Mobility and Gait Start: 12/12/22 12:26 Freq: NEEDED Status: Active Protocol: Document 12/13/22 10:36 AB (Rec: 12/13/22 13:41 AB [id number]) PT-Bed Mobility Assessment Supine to Sit Supine to Sit Independent PT-Transfer Assessment Sit to and From Stand Sit to and from Stand Standby Assistance,1 Person Assistance,Use of Upper Extremities Equipment Transfer Assistive Device Gait Belt,4 Wheeled Walker Orthotic/Prosthetic Devices or Brace: No Transfers Transfer Destination Toilet Transfer Technique ambulated Transfer Ability Level of Assist Standby Assistance,1 Person Assistance,Use of Upper Extremities Comments Mobility Comments pt supine in bed and agreeable to do PT. BP: 124/70 O2 sat 95-96%. completed supine to sit independent. able to sit on EOB SBA. requested to use the toilet. completed sit to stand SBA and ambulated using 4WW SBA but with cues for brake management. pt cautious with ambulation and has a slow paced gait but without LOB. pt also presents with wheezing and SOB but O2 sat at 95% pt stated that she sits on the 4WW when she gets tired. pt also stated sometimes she just feels weaker. pt has a manual w/c at home and educated pt on safety and to use her w/c if she is feeling weak for safety. OT took over pt's care for toileting needs. Gait Assessment Gait Gait Assistance Required: Standby Assistance Distance (Feet) 20 Able to Maintain Weight Bearing Status Yes During Gait Assistive Devices Assistive Device Gait Belt,4 Wheeled Walker Orthotic/Prosthetic Devices or Brace: No Gait Deviations General Gait Pattern Decreased Stride Length, Decreased Feet Clearance Factors Limiting Gait Function Factors Limiting Gait Function Decreased Activity Tolerance, Limited Range of Motion,Poor Balance,Poor Safety Awareness PT-Balance Assessment Sitting Balance and Reactions Static Sitting Balance Ability Normal Dynamic Sitting Balance Ability Good Standing Balance and Reactions Static Standing Balance Ability Fair Dynamic Standing Balance Ability Fair Device Used 4WW M5 PT-IP Objective Assessments Start: 12/12/22 12:26 Freq: NEEDED Status: Active Protocol: Document 12/13/22 10:36 AB (Rec: 12/13/22 13:41 AB [id number]) Orientation Orientation/Cognition Level of Alertness Alert Orientation Name,Place,Situation Language Function Ability Hard of Hearing Safety Awareness Decreased Safety Awareness Memory Description Short Term Impaired Gross Range of Motion Lower Extremity ROM Assessment Within Functional Limits Strength Lower Extremity Strength Assessment Within Functional Limits Sensation Assessment Sensation Gross Sensation WNL Muscle Tone Muscle Tone WNL Yes M6 PT-IP Treatment Start: 12/12/22 12:26 Freq: NEEDED Status: Active Protocol: Document 12/13/22 10:36 AB (Rec: 12/13/22 13:41 AB [id number]) Physical Therapy Treatment Education Education Provided Safety M7 PT-IP Assessment and Plan Start: 12/12/22 12:26 Freq: NEEDED Status: Active Protocol: Document 12/13/22 10:36 AB (Rec: 12/13/22 13:41 AB [email or web address]) PT Summary Assessment and Plan Potential Rehabilitation Potential Fair Status of Condition at Evaluation Stable Summary Impairments Pain,ROM,Strength,Balance, Coordination,Cognition,Bed Mobility,Transfers,Gait, Activity Tolerance Assessment Summary pt admitted after a GLF and also has dx a-fib. pt lives at [facility]. pt requiring SBA with ambulation using 4WW but requires cues for safety. pt will benefit from HHPT to improve overall strength/ activity tolerance and for further walker training. Goals Bed Mobility Goal Independent Transfer Goal Independent,Four Wheeled Walker Gait Goal Independent,Four Wheel Walker Gait Distance 200 Days to Meet Goals 5 Frequency of Treatment Frequency Of Treatment Once a Day Treatment Plan Physical Therapy Treatment Plan Bed Mobility Training,Transfer Training,Gait Training, Therapeutic Exercise,Balance Retraining,Discharge Planning, Neuromuscular Re-ed, Coordination Retraining Recommendations To Nursing Amount of Assist Needed 1 Person Assist Discharge Recommendations PT Discharge Recommendations Home with Assistance,Home Health Transportation Needs at Discharge Private Vehicle,Wheelchair/ Cabulance
--- NOTE | 2022-12-13 11:30 | OT.IP.TRT ---
Current Diagnoses Heart failure, unspecified (12/11/22) Occupational Therapy Treatment Note M2 OT-IP Current Condition Start: 12/12/22 13:49 Freq: Status: Active Protocol: Document 12/12/22 13:49 CGR (Rec: 12/12/22 13:59 CGR [id number]) Occupational Therapy Current Condition Current Condition Evaluation Date 12/12/22 Treatment Diagnosis ground level fall, Afib and CHF Diagnosis Onset Date 12/11/22 M3 OT- IP Subjective and Pain Start: 12/12/22 13:49 Freq: Status: Active Protocol: Document 12/13/22 11:30 [facility] (Rec: 12/13/22 11:52 [facility] [id number]) OT- Subjective Occupational Therapy Visit Type Type Treatment Note Visit Start Time 10:33 Visit Stop Time 11:30 Total Visit Minutes 57 Occupational Therapy Visit Comments Patient Comments Pt agreed to get up and use the bathroom. PT present for part of the session. Patient/Caregiver Goals TO go home. OT Pain Assessment Pain When Pain Assessed At Rest Pain Present Pain Present Denied Pain M4 OT- IP ADL's Start: 12/12/22 13:49 Freq: Status: Active Protocol: Document 12/13/22 11:30 [facility] (Rec: 12/13/22 11:52 [facility] [id number]) OT ADL-Grooming General Evaluation Grooming Ability Independent OT ADL-Oral Care General Eval Oral Care Ability Independent OT ADL-Dressing General Eval Lower Body Dressing Ability Independent Comments OT Dressing Comments Pt needing increased time for brief management and sock needs. OT ADL-Toileting General Evaluation Toileting Ability Standby Assistance Comments OT Toileting Comments Distant SBA or safety. Otherwise pt needing increased time with hygiene and dressing needs. Pt has been wanting to get grab bars put up by her toilet or get a BSC. Pt states unable to get it on her own at this time. OT ADL-Bathing Comments OT Bathing Comments Pt would benefit from shower aid at home due to decreased activity tolerance now. M5 OT- IP IADL's Start: 12/12/22 13:49 Freq: Status: Active Protocol: Document 12/13/22 11:30 [facility] (Rec: 12/13/22 11:52 [facility] [id number]) OT-Instrumental Activities of Daily Living Deficits IADL Deficits Identified Deficits Home Safety Awareness Awareness of Need for Assistance at Home Good Awareness Ability to Problem Solve Emergency Able to Problem Solve Situations Medication Management Medication Management No Deficits Identified Money Management Money Management No Deficits Identified Meal Preparation Meal Preparation Caregiver Provides Assist Refinery Operator Helper Cracking Unit Refinery Operator Helper Cracking Unit Caregiver Provides Assist Driving Driving Caregiver Provides Assist M6 OT- IP Functional Cognition Start: 12/12/22 13:49 Freq: Status: Active Protocol: Document 12/13/22 11:30 [facility] (Rec: 12/13/22 11:52 [facility] [id number]) Cognitive Factors Limiting Selfcare Function Cognitive Comments Cognitive Assessment Comments Pt very [place] and appears at her baseline. M7 OT- IP Mobility and Balance Start: 12/12/22 13:49 Freq: Status: Active Protocol: Document 12/13/22 11:30 [facility] (Rec: 12/13/22 11:52 [facility] [id number]) OT-Transfer Assessment Sit to and From Stand Sit to and from Stand Standby Assistance Transfers Transfer Ability Standby Assistance Technique Transfer Destination Bed,Chair,Toilet Transfer Technique Stand Step Pivot Devices Transfer Assistive Devices Gait Belt,4 Wheeled Walker Comments Mobility Comments SBA. For mobility needs. Pt will greatly benefit from grab bars in the bathroom by the toilet and also can be used for the shower as her current bar per pt is too far away on the back wall of the shower. OT- Balance Assessment Sitting Balance and Reactions Static Sitting Balance Ability Normal Dynamic Sitting Balance Ability Normal Standing Balance and Reactions Static Standing Balance Ability Good Dynamic Standing Balance Ability Fair M8 OT- IP Objective Assessments Start: 12/12/22 13:49 Freq: Status: Active Protocol: Document 12/12/22 13:49 CGR (Rec: 12/12/22 13:59 CGR [id number]) OT Gross Range of Motion Upper Extremity Range of Motion Assessment Within Functional Limits OT Strength Upper Extremity Strength Assessment Within Functional Limits Comments Strength Comments 4+/5 OT- Coordination Assessment Upper Extremity Finger to Nose Test Within Functional Limits Finger Tapping Test Within Functional Limits OT-Muscle Tone Assessment Muscle Tone WNL Yes OT Sensation Assessment Edema Edema Absent M9 OT- IP Assessment and Plan Start: 12/12/22 13:49 Freq: Status: Active Protocol: Document 12/13/22 11:30 [facility] (Rec: 12/13/22 11:52 [facility] [id number]) OT Summary Assessment and Plan Potential Rehabilitation Potential Good Analytic Complexity at Evaluation Moderate Summary OT Impairments Balance,Functional Mobility, Grooming,Dressing,Toileting, Bathing,Toilet Transfers, Shower Transfers,Activity Tolerance Assessment Summary Pt still gets SOB easily, decreased activity tolerance, and would benefit from grab bars, BSC, and use of wc if needed or continue to take frequent rest breaks with her 4ww. Pt would benefit from more assist at home, home health, and a bath aid. Goals Grooming Goal Independent Dressing Goal Independent Toileting Goal Independent Bathing Goal Independent Toilet Transfer Goal Independent Shower Transfer Goal Independent Days to Meet Goals 7 Frequency of Treatment Frequency Of Treatment Once a Day Treatment Plan OT Treatment Plan ADL Training,Functional Mobility,Patient/Family Education,Discharge Planning Other Treatment Recommendations and Next shower if able Treatment Focus Discharge Recommendations OT Discharge Recommendations Home with Assistance,Home Health Transportation Needs at Discharge Private Vehicle
--- NOTE | 2022-12-13 11:51 | CM.DPC ---
DCP Continued: From provider in rounds, patient can either d/c home today or tomorrow pending how she does with therapy. OPERATIONS ADVISOR called [facility] to attempt to schedule ride for patient their next available facility transportation is not available until afternoon. OPERATIONS ADVISOR utilized headset/hearing device to communicate with patient. OPERATIONS ADVISOR entered room and reintroduced self and role. Patient was resting but reported being able to hear better with device. Patient reports being open to HH but unable to remember which agency her used before. Patient reported she was okay with cab transport home and is okay with the cost. Patient reports she is worried about paying for her medication. Patient denied resources from this OPERATIONS ADVISOR for paying for medication at this time. OPERATIONS ADVISOR referred patient to nursing staff for additional questions regarding her medication. From provider, he would like to keep patient another day. OT reports home with HH is appropriate and patient remembered her used [facility] before. CM Curtain Fitter Flavia faxed initial referral to [facility]. OPERATIONS ADVISOR called [facility] to inform them of incoming referral. Nida from [facility] reports they will likely be able to accept her. OPERATIONS ADVISOR answered questions regarding patient's current state. Plan: patient will likely d/c tomorrow back to [facility] and start with [facility] , pending they accept her. CM team will continue to follow closely. JESI Cardoso
--- NOTE | 2022-12-13 16:35 | P.PN_ITS ---
Subjective Subjective Interval history: Patient has no new complaints. Is feeling slowly better. However not co mpletely well. She remains a bit weak and mildly dyspnic. Lives in independent living. Exam Vital Signs (past 8 hours): - 12/13/22 12:18 Temperature 98 F Pulse Rate 80 Respiratory Rate 17 Blood Pressure 124/60 Pulse Oximetry 98 Oxygen Flow Rate 0 Oxygen Delivery Method Room Air Oxygen Flow Rate 0 Narrative Exam Narrative: GENERAL: Frail and elderly, very hard of hearing.? In no acute medical distress. EYES: Pupils equal round and reactive.? Extraocular movements normal. NECK: Trachea midline. CARDIOVASCULAR:? Irregular rhythm without murmurs, gallops, or rubs. RESPIRATORY: Clear to auscultation. Breath sounds equal bilaterally. Some crackles persistent in the lower bases. GASTROINTESTINAL: Abdomen soft, non-tender, nondistended. EXTREMITIES:? Minimal pitting edema on bilateral lower extremities.? Left hand with 3 cm superficial laceration in the webspace between 4th and 5th fingers. Dressed. NEURO: AOx3. Objective Labs 12/13/22 04:08 12/13/22 04:08 Labs: Laboratory Results - last 24 hr 12/13/22 12/13/22 04:08 04:08 WBC 9.1 RBC 4.04 Hgb 13.2 Hct 39.3 MCV 97.3 MCH 32.6 MCHC 33.5 RDW 15.7 H Plt Count 197 Neut % (Auto) 70.5 Lymph % (Auto) 16.3 L [place] % (Auto) 10.2 Eos % (Auto) 2.4 Baso % (Auto) 0.6 Neut # (Auto) 6400 Lymph # (Auto) 1500 [place] # (Auto) 900 Eos # (Auto) 200 Baso # (Auto) 100 Sodium 133 L Potassium 3.6 Chloride 100 Carbon Dioxide 29 BUN 16 Creatinine 0.62 Estimated GFR > 60 BUN/Creatinine Ratio 25.8 H Glucose 127 H Calcium 7.8 L Total Bilirubin 1.0 AST 25 ALT 20 Alkaline Phosphatase 122 NT-Pro-B Natriuret Pep 9590 H Total Protein 5.9 L Albumin 2.7 L Globulin 3.2 Albumin/Globulin Ratio 0.8 L PFSH Medical History Breast cancer CHF (congestive heart failure) Chronic a-fib CVA (cerebral vascular accident) Social History marital status: details: From [place], [facility] household members: none Smoking Status: Former smoker alcohol intake: former substance use type: does not use Assessment & Plan Assessment & Plan narrative: 1. Afib with RVR, RVR resolved - initially required diltiazem infusion now weaned with only oral metoprolol. - elevated chads2-vasc, deconditioned due to CHF, started anticoagulation today for stroke prevention. 2. Acute systolic heart failure - new diagnosis of HF with reduced EF, possibly tachyarrythmia induced. - continue oral diuresis today, improving slowly - continue PT / OT. - now on beta may and pravin inhibition with lisinopril. - repeat TTE as an outpatient, outpatient cardiology follow up recommended given improvement in symptom control and rate control with medications. 3. History of breast cancer.? No active treatment. 4. History of CVA.? Atorvastatin 80 mg daily. Will stop aspirin with anticoaulation. 5. Bilateral groin rash consistent with candidiasis.? Treat with clotrimazole 1% with betamethasone 0.05% cream b.i.d. for 5 days. Improving with treatment. Follow labs and patient clinically. Code status:? Do not resuscitate/do not intubate Surrogate decision maker:? Friend, Sophia Garcia DVT prophylaxis:? Enoxaparin 40 mg subQ daily Quality VTE Deep Vein Thrombosis/Pulmonary Embolism Present on Admission: No
[2022-12-13] MEDS: ATORVASTATIN 20 MG TABLET 80 MG PO (20:24)
[2022-12-13] MEDS: SENNOSIDES 8.6 MG TABLET 17.2 MG PO (20:24)
[2022-12-13] MEDS: MELATONIN 3 MG TABLET PO (20:26)
[2022-12-14] VITALS: BP 134/79; PULSE 83; RESP 20; TEMP 36.1; O2SAT 93
[2022-12-14] MEDS: ACETAMINOPHEN 325 MG TABLET 650 MG PO (03:30)
[2022-12-14 04:00] VITALS: BP 150/63; PULSE 86; RESP 21; TEMP 36.2; O2SAT 94
[2022-12-14 04:42] LABS: Add Manual Diff / Slide Review NO; Basophils Absolute Auto 100 /uL (0-100); Basophils Percent Auto 0.8 % (0-2); Eosinophils Absolute Auto 300 /uL (0-450); Eosinophils Percent Auto 3.4 % (2-4); Hematocrit 39.7 % (36-46); Hemoglobin 13.2 g/dL (12.0-16.0); Lymphocytes Absolute Auto 1700 /uL (1100-4500); Lymphocytes Percent Auto 20.2 % (25-40); Mean Corpuscular HGB Conc 33.3 % (30-36); Mean Corpuscular Hemoglobin 32.8 PG (26-34); Mean Corpuscular Volume 98.4 fL (80-100); Monocytes Absolute Auto 1100 /uL (0-900); Monocytes Percent Auto 12.5 % (3-14); Neutrophils Absolute Auto 5400 /uL (1500-7000); Neutrophils Percent Auto 63.1 % (50-75); Platelet Count 200 X10^3/uL (150-400); Red Blood Cell Count 4.03 X10^6/uL (4.0-5.2); Red Cell Distribution Width 16.2 % (11.6-14.8); White Blood Cell Count 8.5 X10^3/uL (4.5-11.0)
[2022-12-14 04:54] LABS: Alanine Aminotransferase 19 IU/L (<35); Albumin 2.6 g/dL (3.5-5.0); Albumin Globulin Ratio 0.8 (1.0-2.8); Alkaline Phosphatase 115 U/L (38-126); Aspartate Aminotransferase 22 IU/L (14-36); BUN Creatinine Ratio 21.5 (6-22); Bilirubin Total 0.8 mg/dL (0.2-1.3); Blood Urea Nitrogen 14 mg/dL (7-17); Calcium 7.7 mg/dL (8.4-10.2); Carbon Dioxide 35 mmol/L (22-32); Chloride 97 mmol/L (98-107); Estimated Glomerular Filt Rate > 60 mL/min (>60); Globulin 3.3 g/dL (1.7-4.1); Glucose 113 mg/dL (80-110); HEMOLYSIS < 15 (0-50); Magnesium 1.6 mg/dL (1.6-2.3); Potassium 3.6 mmol/L (3.4-5.1); Sodium 133 mmol/L (137-145); Total Protein 5.9 g/dL (6.3-8.2)
[2022-12-14 08:00] VITALS: BP 108/62; PULSE 74; RESP 17; TEMP 36.1; O2SAT 93
[2022-12-14] MEDS: ASCORBIC ACID 500 MG TABLET PO (08:10)
[2022-12-14] MEDS: POTASSIUM CHLORIDE 20 MEQ TAB PO (08:10)
[2022-12-14] MEDS: APIXABAN 5 MG TABLET PO (08:10)
[2022-12-14] MEDS: FOLIC ACID 1 MG TABLET 0.5 MG PO (08:11)
[2022-12-14] MEDS: CYANOCOBALAMIN (VITAMIN B-12) 500 MCG TABLET PO (08:11)
[2022-12-14] MEDS: TRIAMCINOLONE 0.5% CREAM 1 APPLIC TOP (08:11)
[2022-12-14] MEDS: CLOTRIMAZOLE 1% CRM 30 GM 1 APPLIC TOP (08:11)
[2022-12-14 08:12] VITALS: BP 108/62; PULSE 84
[2022-12-14] MEDS: FUROSEMIDE 40 MG TABLET PO (08:12)
[2022-12-14] MEDS: lisinopriL 5 MG TABLET 2.5 MG PO (08:12)
[2022-12-14] MEDS: SODIUM CHLORIDE 0.9% FLUSH 10 ML IV (08:13)
[2022-12-14] MEDS: METOPROLOL IR 25 MG TABLET PO (08:13)
--- NOTE | 2022-12-14 09:32 | P.DS_ITS ---
History of Present Illness History of Present Illness Date Patient Seen: 12/14/22 Time Patient Seen: 09:32 Chief complaint: GLF no thinners Narrative: Juanita Watson is an 82-year-old female nonsmoker with a reported history of atrial fibrillation and congestive heart failure who presented by EMS for evaluation a ground level fall and generalized weakness.? She stated that she was getting out of bed at about 4:00 a.m. on the morning of presentation and fell to the ground.? She thinks maybe she has some pain in her right shoulder and left-sided ribs but denied any other injury is an hand laceration.? She stated she did not strike her head and has no neck or back pain.? She denied any change in medications or any dietary change.? She stated that she has been eating and drinking without difficulty but did state that she thought her oral intake has been decreased.? She denied runny nose or sore throat.? She denied chest pain.? She stated that she is always short of breath and denied any new short of breath.? She has had no nausea, vomiting or diarrhea.? She denied dysuria, frequency or urgency.? She stated she slowly fell to the ground and was unable to get up for the past 2-3 hours prior to presentation. ? Discharge Providers Provider Date of admission: 12/11/22 08:47 Discharge Date: 12/14/22 Primary care physician: Doctor Solis MD Consults: 12/11/22 10:57 Consult to Speech Therapy Evaluate & Treat Comment: Physician Instructions: Evaluate and treat 12/12/22 10:32 Consult to Occupational Therapy Evaluate & Treat Comment: Physician Instructions: Evaluate and treat 12/12/22 10:33 Consult to Physical Therapy Evaluate & Treat Comment: Physician Instructions: Evaluate and Treat Discharge provider: Darwin Landaverde DO Summary Hospital Course Discharge Diagnosis: 1. Afib with RVR, RVR resolved, unable to further specify type based on presentation 2. Acute systolic heart failure 3. History of breast cancer. 4. History of CVA. 5. Bilateral groin rash consistent with candidiasis. 6. Mild hyponatremia Hospital Course: This is an 82 year old female with PMH of breast cancer, prior CVA admitted initially for afib with RVR and shortness of breath. She was able to be weaned from diltiazem infusion after it was started for rate control in the ER. She was continued on oral metoprolol with improvement. Echocardiogram showed an EF of 20-25%, presumable due to her rapid atrial fibrillation. She had marked improvement in symptoms with diuresis and medical management. Further evaluation with cardiology is recommended for her newly diagnosed systolic heart failure. With return to her baseline function, she was discharged back to [facility]. It is recommended after therapy evaluations that patient consider assisted living, though this may improve with continued treatment of her heart failure. For her afib, she was also started on apixaban for stroke prevention. She was discharged on low dose lisinopril, along with metoprolol. She was also sent some potassium to take while on oral furosemide. She did develop a mild rise in her bicarb, likely due to oral diuresis BID. Her dosing was decreased to 40 mg daily on discharge. She will likely need continued adjustment and monitoring of diuretic therapy as an outpatient with PCP and / or concrete products machine operator. Time Spent with Patient Time spent: Greater than 30 minutes Exam Vital Signs (past 8 hours): - 12/14/22 04:00 12/14/22 08:12 12/14/22 08:00 Temperature 97.2 F L 96.9 F L Pulse Rate 86 84 74 Respiratory Rate 21 17 Blood Pressure 150/63 H 108/62 108/62 Pulse Oximetry 94 93 Oxygen Flow Rate 0 0 Oxygen Delivery Method Room Air Oxygen Flow Rate 0 Narrative Exam Narrative: GENERAL: Frail and elderly, very hard of hearing.? In no acute medical distress. EYES: Pupils equal round and reactive.? Extraocular movements normal. NECK: Trachea midline. CARDIOVASCULAR:? Irregular rhythm, normal rate without murmurs, gallops, or rubs. RESPIRATORY: Clear to auscultation. Breath sounds equal bilaterally. Some crackles persistent in the lower bases. GASTROINTESTINAL: Abdomen soft, non-tender, nondistended. EXTREMITIES:? Minimal pitting edema on bilateral lower extremities.? Left hand with 3 cm superficial laceration in the webspace between 4th and 5th fingers. Dressed. NEURO: AOx3. Objective Labs 12/14/22 04:23 12/14/22 04:23 Labs: Laboratory Results - last 24 hr 12/14/22 12/14/22 04:23 04:23 WBC 8.5 RBC 4.03 Hgb 13.2 Hct 39.7 MCV 98.4 MCH 32.8 MCHC 33.3 RDW 16.2 H Plt Count 200 Neut % (Auto) 63.1 Lymph % (Auto) 20.2 L [place] % (Auto) 12.5 Eos % (Auto) 3.4 Baso % (Auto) 0.8 Neut # (Auto) 5400 Lymph # (Auto) 1700 [place] # (Auto) 1100 H Eos # (Auto) 300 Baso # (Auto) 100 Sodium 133 L Potassium 3.6 Chloride 97 L Carbon Dioxide 35 H BUN 14 Creatinine 0.65 Estimated GFR > 60 BUN/Creatinine Ratio 21.5 Glucose 113 H Calcium 7.7 L Magnesium 1.6 Total Bilirubin 0.8 AST 22 ALT 19 Alkaline Phosphatase 115 Total Protein 5.9 L Albumin 2.6 L Globulin 3.3 Albumin/Globulin Ratio 0.8 L PFSH Medical History Breast cancer CHF (congestive heart failure) Chronic a-fib CVA (cerebral vascular accident) Social History marital status: details: From [place], living [facility] household members: none Smoking Status: Former smoker alcohol intake: former substance use type: does not use Discharge Plan Discharge Plan Patient Disposition: Home Provider Discharge Comment: You were admitted to the hospital with shortness of breath, found to have rapid heart rate with atrial fibrillation and heart failure. Recommend PCP follow up as soon as possible for continuation of medications and possible diuretic adjustments with referral to cardiology for heart failure. Discharge orders & Medications Prescriptions: New furosemide 40 mg Tablet 40 mg PO DAILY Qty: 30 0RF potassium chloride [Klor-Con M20] 20 mEq Tablet,Er Particles/Crystals 20 meq PO BIDWM 30 Days Qty: 60 0RF cyanocobalamin (vitamin B-12) 500 mcg Tablet 500 mcg PO DAILY Qty: 30 0RF ascorbic acid (vitamin C) [Vitamin C] 500 mg Tablet 500 mg PO DAILY Qty: 30 0RF folic acid 1 mg Tablet 0.5 mg PO DAILY Qty: 30 0RF lisinopril 5 mg Tablet 2.5 mg PO DAILY 30 Days Qty: 15 0RF cholecalciferol (vitamin D3) [Vitamin D3] 125 mcg (5,000 unit) Tablet 50,000 unit PO Richardson@0900 Qty: 3 0RF Eliquis 5 mg Tablet 5 mg PO BID 30 Days Qty: 60 0RF Continued metoprolol tartrate 25 MG tablet 25 mg PO BID 30 Days Qty: 30 0RF Follow up/Referrals: David Farrell MD [Family Provider] - 12/20/22 3:00 pm (12/20 @ 3:[address] Farrell please arrive 20 min prior to your scheduled appointment time this is a hospital follow up, new dx heart failure, likely afib related.) Diet/Activity/Treatments Diet: Diet as Tolerated and Low-sodium Diet comment: Heart Healthy. Activity: As tolerated, no restrictions Visit Report/Discharge Packet Instructions: DI for Heart Failure, DI for Atrial Fibrillation, Furosemide Stand Alone Forms: Patient Portal/API, Stroke Signs & Symptoms Discharge Data Primary Care Provider: Miscellaneous,Doctor Discharges patient from system. Discharge Date/Time: 12/14/22 11:00 Quality VTE Deep Vein Thrombosis/Pulmonary Embolism Present on Admission: No
[2022-12-14] MEDS: MAGNESIUM CHLORIDE 64 MG TABLET 128 MG PO (09:42)
--- NOTE | 2022-12-14 10:41 | CM.DPC ---
DCP Continued: Per provider in rounds, patient is medically cleared to d/c today. CHIEF HOSPITAL ADMINISTRATOR called [facility] to confirm they should be good to accept patient. Nida from [facility] said while they have not officially accepted yet, she foresees no issues with accepting her. CHIEF HOSPITAL ADMINISTRATOR warned Nida that patient is very hard of hearing. Nida reported they would do an in person visit to establish services. CHIEF HOSPITAL ADMINISTRATOR ordered nursing/PT/OT/CHIEF HOSPITAL ADMINISTRATOR/CASE RESOURCE MANAGER from [facility] for patient. SW for terminal carman planning/increase in senior living care/assistance with applying for non profit financial controller for medications. CHIEF HOSPITAL ADMINISTRATOR called Sophia at [facility] ([phone]) to assist in arranging a ride. CHIEF HOSPITAL ADMINISTRATOR requested that her ride bring her walker for her. Sophia reported a ride will be at the ER entrance with her walker at 1100 today. CHIEF HOSPITAL ADMINISTRATOR updated nursing staff and provider of timeline. CHIEF HOSPITAL ADMINISTRATOR entered room and reintroduced self and role to patient. CHIEF HOSPITAL ADMINISTRATOR provided state/federal wide medication assistance information for seniors as well as [facility] specific assistance information. CHIEF HOSPITAL ADMINISTRATOR placed paperwork in patient bag per patient request. CHIEF HOSPITAL ADMINISTRATOR updated patient on ride coming at 1100. Patient very concerned about not getting lunch. Nursing staff agreed to get her a sandwhich and pudding in case she can't make it in time for lunch at [facility]. CM Truck Farmer Flavia will fax over d/c information to [facility]. Nursing staff inquired about how patient could get her prescriptions filled/the kind of assistance [facility] offers. CHIEF HOSPITAL ADMINISTRATOR reported that [facility] is independent living and it is on her to arrange her medications. Plan: patient will d/c at 1100 to return to Home in [facility] with [facility]. CM team will continue to follow closely. JESI Cardoso
== END 2022-12-14 11:00 | disposition home or self-care (01) | DRG 308 ==
LOC: ED 08:36 → AC 08:48 → ICU 09:25
PROVIDERS: Internal Medicine; Admitting Provider Neuromusculoskeletal Medicine, Sports Medicine; Emergency Provider Emergency Medicine; Family Provider Internal Medicine; Referring Provider Emergency Medicine; Visit Provider Neuromusculoskeletal Medicine, Sports Medicine
DX: I48.91 Unspecified atrial fibrillation (principal); I50.21 Acute systolic (congestive) heart failure; B37.2 Candidiasis of skin and nail; S61.412A Laceration without foreign body of left hand, initial encounter; W18.30XA Fall on same level, unspecified, initial encounter; Z79.82 Long term (current) use of aspirin; Z86.73 Personal history of transient ischemic attack (TIA), and cerebral infarction without residual deficits; Z87.891 Personal history of nicotine dependence; Z66 Do not resuscitate
CPT/HCPCS: 12002; 36415; 71045; 80053; 80076; 81001; 82550; 83735; 83880; 84484; 85025; 87086; 87797; 92610; 93005; 93010; 93306; 96365; 96366; 96375; 97161; 97166; 97530; 97535; 99284; A9270; J1650; J1940

== ENCOUNTER 2023-01-13 19:42 | Emergency (ER) | payer MEDICARE, SELFPAY ==
[2022-12-14 09:51] VITALS: BMI 23.3
[2023-01-13] VITALS (12 sets, daily range): BP systolic 142–180; BP diastolic 86–109; PULSE 73–117; TEMP 37.1; O2SAT 89–98; BMI 25.4
--- NOTE | 2023-01-13 20:40 | DI.CT.S_ITS ---
PROCEDURE: CT HEAD/BRAIN WO CON INDICATIONS: confusion TECHNIQUE: Noncontrast 4.5 mm thick angled axial sections acquired from the foramen magnum to the vertex, with coronal and sagittal reformats. For radiation dose reduction, the following was used: automated exposure control, adjustment of mA and/or kV according to patient size. COMPARISON: [facility], CT, CT HEAD/BRAIN WO CON, 08/14/2018, 14:50. FINDINGS: Image quality: Excellent. CSF spaces: Basal cisterns are patent. No extra-axial fluid collections. Cavum septum pellucidum. Ventricles are normal in size and shape. Brain: No midline shift. No intracranial masses or hemorrhage. Area of encephalomalacia in the right cerebral hemisphere is unchanged. Periventricular hypodensity consistent with chronic microvascular ischemic disease. Age-related parenchymal loss. Skull and face: Calvarium and visualized facial bones are intact, without suspicious lesions. Sinuses: Visualized sinuses and mastoids are clear. IMPRESSION: No interval change. No acute intracranial hemorrhage. 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 Dictated by: Luis Larson M.D. on 01/13/2023 at 21:49 Approved by: Luis Larson M.D. on 01/13/2023 at 21:52
--- NOTE | 2023-01-13 20:41 | DI.RAD.S_ITS ---
PROCEDURE: XR CHEST 1V INDICATIONS: confusion, crackles TECHNIQUE: One view of the chest was acquired. COMPARISON: [facility], CR, XR CHEST 1V, 12/11/2022, 7:49. [facility], CR, XR CHEST 1V, 08/14/2018, 14:58. FINDINGS: Surgical changes and devices: None. Lungs and pleura: Diffuse reticulation and small pleural effusions. Mediastinum: Mediastinal contours appear normal. Heart size is enlarged. Annular calcification of the mitral valve. Bones and chest wall: No suspicious bony lesions. Overlying soft tissues appear unremarkable. IMPRESSION: Diffuse pulmonary reticulation and small pleural effusions. Differential includes pulmonary edema, interstitial lung, or a combination of both. Dictated by: Cody Euceda M.D. on 01/13/2023 at 21:54 Approved by: Cody Euceda M.D. on 01/13/2023 at 21:55
[2023-01-13 20:49] LABS: Add Manual Diff / Slide Review NO; Basophils Absolute Auto 100 /uL (0-100); Basophils Percent Auto 0.9 % (0-2); Eosinophils Absolute Auto 400 /uL (0-450); Eosinophils Percent Auto 4.5 % (2-4); Hematocrit 41.7 % (36-46); Hemoglobin 14.2 g/dL (12.0-16.0); Lymphocytes Absolute Auto 2500 /uL (1100-4500); Mean Corpuscular HGB Conc 34.1 % (30-36); Mean Corpuscular Hemoglobin 33.5 PG (26-34); Mean Corpuscular Volume 98.5 fL (80-100); Monocytes Absolute Auto 800 /uL (0-900); Monocytes Percent Auto 10.2 % (3-14); Neutrophils Absolute Auto 4200 /uL (1500-7000); Neutrophils Percent Auto 52.4 % (50-75); Platelet Count 241 X10^3/uL (150-400); Red Blood Cell Count 4.24 X10^6/uL (4.0-5.2); Red Cell Distribution Width 16.1 % (11.6-14.8)
[2023-01-13 20:51] LABS: INR 1.5 (0.9-1.3); Prothrombin Time 17.4 SECONDS (10.1-12.7)
[2023-01-13 20:53] LABS: PTT Partial Thromboplastin Tim 32 SECONDS (26-36)
[2023-01-13 20:56] LABS: Alanine Aminotransferase 17 IU/L (<35); Albumin 3.6 g/dL (3.5-5.0); Albumin Globulin Ratio 0.9 (1.0-2.8); Alkaline Phosphatase 118 U/L (38-126); Aspartate Aminotransferase 31 IU/L (14-36); BUN Creatinine Ratio 29.4 (6-22); Bilirubin Total 1.4 mg/dL (0.2-1.3); Blood Urea Nitrogen 20 mg/dL (7-17); Calcium 8.6 mg/dL (8.4-10.2); Carbon Dioxide 22 mmol/L (22-32); Chloride 103 mmol/L (98-107); Creatine Kinase 46 U/L (30-135); Estimated Glomerular Filt Rate > 60 mL/min (>60); Globulin 3.8 g/dL (1.7-4.1); Glucose 114 mg/dL (80-110); HEMOLYSIS 33 (0-50); Lipase 78 U/L (23-300); Potassium 3.9 mmol/L (3.4-5.1); Sodium 137 mmol/L (137-145); Total Protein 7.4 g/dL (6.3-8.2)
[2023-01-13 21:06] LABS: NT-proBNP (BNP-Adult 18+) 12100 pg/mL (<450)
--- NOTE | 2023-01-13 22:11 | PC.NURSE ---
Patient denies having pain today. She states she did not take her lasix this morning. Legs bilateral 3+ pitting edema, shiny, not painful to touch. Patient is able to tell me her birthday, that we are at [facility], and knows the year 2022 and current president Robertluis Carcamo. She is hard of hearing. Patient up to the BSC stand by assist with the walker and denies dizziness or lightheaded. Patient states she would like to go home.
[2023-01-14] VITALS (18 sets, daily range): BP systolic 144–169; BP diastolic 81–131; PULSE 89–130; O2SAT 91–95
--- NOTE | 2023-01-14 01:11 | ED_ITS ---
HPI - Altered Mental Status General Chief Complaint: Altered Mental Status Stated Complaint: ALT Mental Status Time Seen by Provider: 01/13/23 20:40 Source: patient and EMS Mode of arrival: EMS Limitations: no limitations History of Present Illness HPI narrative: This is an 82-year-old female who presents from [facility] for altered mental status. Patient is alert, she knows the year, location she knows why she is present. Patient is quite hard of hearing but seems to be appropriate her mentation at this time. There is report that she does have some baseline dementia. She denies any acute confusion at this time. She does note she took her medications little bit late today. Patient states no headaches no fevers, no chest pain or pressure. She sometimes feels short of breath but none currently. She has noted she is had some increased swelling in her lower extremities. She denies any abdominal back or flank pain. Denies any falls. No nausea no vomiting, no diarrhea constipation. She states she has urinary frequency but gets that because she takes a diuretic. She denies any dysuria or other sense of urgency. Patient states she is taking her Eliquis daily, her cardiac medications and her water pill. She states she did have some recent changes to medications with a recent hospitalization. Patient states she currently lives independently [facility]. She has a ambulated to the bathroom several times here in the department. Related Data Previous Rx's Medication Instructions Recorded ascorbic acid (vitamin C) 500 mg 500 mg PO DAILY #30 tabs 12/14/22 tablet (Vitamin C) cholecalciferol (vitamin D3) 125 50,000 unit PO Richardson@0900 #3 tabs 12/14/22 mcg (5,000 unit) tablet (Vitamin D3) cyanocobalamin (vitamin B-12) 500 500 mcg PO DAILY #30 tabs 12/14/22 mcg tablet folic acid 1 mg tablet 0.5 mg PO DAILY #30 tabs 12/14/22 apixaban 5 mg tablet (Eliquis) 5 mg PO BID #180 tabs 12/20/22 furosemide 40 mg tablet 40 mg PO DAILY #90 tabs 12/20/22 lisinopril 5 mg tablet 2.5 mg PO DAILY #45 tabs 12/20/22 metoprolol tartrate 25 mg tablet 25 mg PO BID #180 tabs 12/20/22 potassium chloride 20 mEq 20 meq PO BIDWM #180 tabs 12/20/22 tablet,extended release(part/cryst) (Klor-Con M) furosemide 40 mg tablet (Lasix) 80 mg PO DAILY 5 days #10 tabs 01/14/23 Allergies Allergy/AdvReac Type Severity Reaction Status Date / Time milk Allergy Mild Rhinitis; Verified 01/12/23 13:38 ear infection adhesive tape Allergy Unknown Rash, Verified 01/12/23 13:38 blisters cyclophosphamide Allergy Unknown Verified 01/12/23 13:38 diltiazem Allergy Unknown SWELLING, Verified 01/12/23 13:38 CHILLS, ITCHING, STATES IV OK doxorubicin [From Adriamycin] Allergy Unknown Neutropenic Verified 01/12/23 13:38 fever erythromycin base Allergy Unknown Rash Verified 01/12/23 13:38 [From Erythrocin] fluoride Allergy Unknown Rash Verified 01/12/23 13:38 paclitaxel Allergy Unknown Verified 01/12/23 13:38 Penicillins Allergy Unknown Rash Verified 01/12/23 13:38 Sulfa (Sulfonamide Allergy Unknown Verified 01/12/23 13:38 Antibiotics) tamoxifen Allergy Unknown Bleeding, Verified 01/12/23 13:38 TIA? tetracycline Allergy Unknown Rash Verified 01/12/23 13:38 vancomycin Allergy Unknown Redness of Verified 01/12/23 13:38 Skin prednisone AdvReac Unknown HYPERTENSION, Verified 01/12/23 13:38 SWELLING, WEIGHT GAIN temazepam [From Restoril] AdvReac Unknown Dizziness Verified 01/12/23 13:38 trastuzumab [From Herceptin] AdvReac Unknown flu-like Verified 01/12/23 13:38 symptoms Review of Systems Review of Systems ROS Unobtainable: All systems reviewed & are unremarkable except as noted in HPI and below Patient History Medical History Cerebrovascular disease Chronic anticoagulation Chronic atrial fibrillation Do not resuscitate Essential hypertension History of breast cancer Mixed hyperlipidemia Systolic CHF, chronic Weakness Social History marital status: details: (Mir, 2020), [address] household members: none Smoking Status: Former smoker alcohol intake: former substance use type: does not use Smoking Status: Former smoker Substance Use Type: does not use Exam Narrative Exam Narrative: GENERAL: Alert and oriented x three, elderly female, mild distress. HEENT: Head normocephalic, atraumatic, EOMI, pupils reactive, face symmetric, moist mucous membranes NECK: Supple, full range of motion CARDIOVASCULAR: Irregularly irregular patient ranges from 90s to 110s intermittently rate and rhythm without murmurs, rubs or gallops. RESPIRATORY: Breath sounds equal bilaterally, no wheezes rhonchi, patient does have some crackles at bases. No tachypnea accessory muscle use. ABDOMEN: Soft, nontender. Normoactive bowel sounds all 4 quadrants. No guarding or rebound, rigidity, no mass : No CVA tenderness EXTREMITIES: Normal range of motion, no clubbing. 2+ swelling bilateral lower extremities. Neurovascularly intact NEUROLOGICAL: Cranial nerves II through XII grossly intact. Moving all extremities SKIN: Warm, dry, no petechiae, no rashes or lesions. Initial Vital Signs Initial Vital Signs: Vital Signs Pulse Rate 101 H 01/13/23 19:46 Blood Pressure 178/109 H 01/13/23 19:46 Pulse Oximetry 95 01/13/23 19:46 Course Orders Ordered: Discontinued Medications Furosemide (Furosemide 40 Mg Tablet) 40 mg PO NOW ONE Stop: 01/14/23 01:24 Last Admin: 01/14/23 02:09 Dose: 40 mg Documented By: Metoprolol Tartrate (Metoprolol Ir 25 Mg Tablet) 25 mg PO NOW ONE Stop: 01/14/23 01:24 Last Admin: 01/14/23 02:09 Dose: 25 mg Documented By: Vital Signs Vital signs: Vital Signs - 8 hr 01/13/23 21:12 01/13/23 21:12 01/13/23 21:30 Pulse Rate 73 Blood Pressure 160/96 H 158/98 H Pulse Oximetry Oxygen Delivery Method 01/13/23 21:30 01/13/23 22:00 01/13/23 22:30 Pulse Rate 106 H 101 H Blood Pressure 142/86 H Pulse Oximetry 96 94 Oxygen Delivery Method 01/13/23 22:30 01/13/23 23:00 01/13/23 23:00 Pulse Rate 94 H 91 H Blood Pressure 145/94 H Pulse Oximetry 92 95 Oxygen Delivery Method Room Air 01/13/23 23:30 01/13/23 23:31 01/13/23 23:31 Pulse Rate 117 H 102 H Blood Pressure 162/93 H Pulse Oximetry 93 95 Oxygen Delivery Method 01/14/23 00:00 01/14/23 00:00 01/14/23 00:06 Pulse Rate 109 H 116 H Blood Pressure 169/123 H Pulse Oximetry 94 94 Oxygen Delivery Method 01/14/23 00:06 01/14/23 00:08 01/14/23 00:08 Pulse Rate 130 H Blood Pressure 161/131 H 153/109 H Pulse Oximetry 95 Oxygen Delivery Method 01/14/23 00:30 01/14/23 00:30 01/14/23 01:05 Pulse Rate 104 H 101 H Blood Pressure 150/94 H Pulse Oximetry 95 92 Oxygen Delivery Method 01/14/23 01:05 01/14/23 01:30 01/14/23 01:30 Pulse Rate 106 H Blood Pressure 145/83 H 157/81 H Pulse Oximetry 94 Oxygen Delivery Method 01/14/23 02:00 01/14/23 02:01 01/14/23 02:01 Pulse Rate 110 H 98 H Blood Pressure 144/101 H Pulse Oximetry 95 95 Oxygen Delivery Method 01/14/23 02:30 01/14/23 03:00 Pulse Rate 107 H 109 H Blood Pressure Pulse Oximetry 93 91 Oxygen Delivery Method MDM - Altered Mental Status Lab Data 01/13/23 19:40 01/13/23 19:40 Labs: Lab Results 01/13/23 01/13/23 01/13/23 Range/Units 19:40 19:40 19:40 WBC 8.0 (4.5-11.0) X10^3/uL RBC 4.24 (4.0-5.2) X10^6/uL Hgb 14.2 (12.0-16.0) g/dL Hct 41.7 (36-46) % MCV 98.5 (80-100) fL MCH 33.5 (26-34) PG MCHC 34.1 (30-36) % RDW 16.1 H (11.6-14.8) % Plt Count 241 (150-400) X10^3/uL Neut % (Auto) 52.4 (50-75) % Lymph % (Auto) 32.0 (25-40) % Castro % (Auto) 10.2 (3-14) % Eos % (Auto) 4.5 H (2-4) % Baso % (Auto) 0.9 (0-2) % Neut # (Auto) 4200 (7515-4069) /uL Lymph # (Auto) 2500 (2238-9759) /uL Castro # (Auto) 800 (0-900) /uL Eos # (Auto) 400 (0-450) /uL Baso # (Auto) 100 (0-100) /uL PT 17.4 H (10.1-12.7) SECONDS INR 1.5 H (0.9-1.3) APTT 32 (26-36) SECONDS Sodium 137 (137-145) mmol/L Potassium 3.9 (3.4-5.1) mmol/L Chloride 103 (98-107) mmol/L Carbon Dioxide 22 (22-32) mmol/L BUN 20 H (7-17) mg/dL Creatinine 0.68 (0.52-1.04) mg/dL Estimated GFR > 60 (>60) mL/min BUN/Creatinine Ratio 29.4 H (6-22) Glucose 114 H (80-110) mg/dL Calcium 8.6 (8.4-10.2) mg/dL Total Bilirubin 1.4 H (0.2-1.3) mg/dL AST 31 (14-36) IU/L ALT 17 (<35) IU/L Alkaline Phosphatase 118 (38-126) U/L Total Creatine Kinase 46 (30-135) U/L Troponin I 0.050 H (0.01-0.034) ng/mL NT-Pro-B Natriuret Pep 40460 H (<450) pg/mL Total Protein 7.4 (6.3-8.2) g/dL Albumin 3.6 (3.5-5.0) g/dL Globulin 3.8 (1.7-4.1) g/dL Albumin/Globulin Ratio 0.9 L (1.0-2.8) Lipase 78 (23-300) U/L Urine Dip Bedside Urine Glucose Negative Bedside Urine Bilirubin - Negative Bedside Urine Ketone - Negative Urine Specific [place] 1.020 Bedside Urine Occult Blood - Negative Bedside Urine pH 6.0 Bedside Urine Protein - Negative Bedside Urine Urobilinogen - Negative Bedside Urine Nitrite - Negative Bedside Urine Leukocytes - Negative Esterase Imaging Data Chest x-ray: Radiologist's Impression: [address] [address] XRay Report Signed Patient: Haylie Watson MR#: [id number] : 1940 Acct:[id number] Age/Sex: 82 / F Date of Service: 01/13/23 Loc: ED Accession Number: [id number] ?? Procedure: XR chest 1V Ordering Provider: Valeria Hernandez D.O. PROCEDURE:? XR CHEST 1V ? INDICATIONS:? confusion, crackles ? TECHNIQUE:? One view of the chest was acquired.? ? COMPARISON:? Located Within [facility], CR, XR CHEST 1V, 12/11/2022, 7:49.? Located Within [facility], CR, XR CHEST 1V, 08/14/2018, 14:58. ? FINDINGS:? ? Surgical changes and devices:? None.? ? Lungs and pleura:? Diffuse reticulation and small pleural effusions. ? Mediastinum:? Mediastinal contours appear normal.? Heart size is enlarged.? Annular calcification of the mitral valve. ? Bones and chest wall:? No suspicious bony lesions.? Overlying soft tissues [place] pear unremarkable.? ? ? IMPRESSION:? Diffuse pulmonary reticulation and small pleural effusions.? Di fferential includes pulmonary edema, interstitial lung, or a combination of both. ? ? Dictated by: Cody Euceda M.D. on 01/13/2023 at 21:54 ? ? Approved by: Cody Euceda M.D. on 01/13/2023 at 21:55?? ECG Data Attestation: I personally reviewed and interpreted this ECG as follows: Interpretation: AFib with RVR rate of 108 QRS of [address]TC [address] No acute [address] elevation depression noted. Patient has prior from 12/11/2022 which appears similar with no acute or dynamic ST changes. MDM Narrative Medical decision making narrative: Pleasant 82-year-old female who presents with report of possible acute alteration in mental status. Patient has reported some baseline dementia. She is alert she knows the year, the president, she knows where she is she knows why she is here. She is able to give majority of history pretty appropriately. She is quite hard of hearing. She had recent hospitalization for AFib with RVR and CHF. Patient's heart rates been intermittently elevated but typically 100 to 90s range. She is not had any hypotension she has not had any hypoxia. Labs show an indeterminate troponin but is actually improved from priors, she denies any new or worsening shortness of breath. BNP is elevated from most recent h ospitalization. Patient was given additional dose of Lasix here, her home metoprolol dose. Chest x-ray does show some pleural effusions but no obvious pneumonia or infection. CBC, CMP, coags do not reflect any other new changes. Bilirubin is elevated at 1.4 but LFTs are otherwise normal negative lipase. No nausea no vomiting or other GI or urinary symptoms. Point of care urine is negative. 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 She is no other acute neurologic changes. She is ambulated to the bathroom twice this evening without issue. Plan to crease Lasix at this time for short term with follow up with [facility]. Discharge Plan Departure Patient Disposition: Home Clinical Impression: Congestive heart failure Instructions: DI for Heart Failure Activity Restrictions/Additional Instructions: Follow-up with your physician for recheck. I would recommend increasing your lasix to 80mg (2 tablets) once daily x 5 days. Continue your other home medications as prescribed. Please return for new changes in mental status, increasing chest pain, shortness of breath, increasing swelling of extremities, lightheadedness or passing out or other new or concerning changes. Prescriptions: New furosemide [Lasix] 40 mg tablet 80 mg PO DAILY 5 Days Qty: 10 0RF No Action Eliquis 5 mg tablet 5 mg PO BID Qty: 180 3RF furosemide 40 mg tablet 40 mg PO DAILY Qty: 90 3RF lisinopril 5 mg tablet 2.5 mg PO DAILY Qty: 45 3RF metoprolol tartrate 25 mg tablet 25 mg PO BID Qty: 180 3RF potassium chloride [Klor-Con M20] 20 mEq tablet,ER particles/crystals 20 meq PO BIDWM Qty: 180 3RF cyanocobalamin (vitamin B-12) 500 mcg Tablet 500 mcg PO DAILY Qty: 30 0RF ascorbic acid (vitamin C) [Vitamin C] 500 mg Tablet 500 mg PO DAILY Qty: 30 0RF folic acid 1 mg Tablet 0.5 mg PO DAILY Qty: 30 0RF cholecalciferol (vitamin D3) [Vitamin D3] 125 mcg (5,000 unit) Tablet 50,000 unit PO Richardson@0900 Qty: 3 0RF Referrals: David Farrell MD [Primary Care Provider] - Stand Alone Forms: Patient Portal/API
[2023-01-14] MEDS: METOPROLOL IR 25 MG TABLET PO (02:09)
[2023-01-14] MEDS: FUROSEMIDE 40 MG TABLET PO (02:09)
== END 2023-01-14 07:26 | disposition home or self-care (01) ==
PROVIDERS: Emergency Provider Emergency Medicine; Family Provider Internal Medicine; PCP Internal Medicine
DX: I50.9 Heart failure, unspecified (principal); R79.89 Other specified abnormal findings of blood chemistry; R41.0 Disorientation, unspecified
CPT/HCPCS: 36415; 70450; 71045; 80053; 81003; 82550; 83690; 83880; 84484; 85025; 85610; 85730; 93005; 99284